=== PATIENT | male | born 1960 | race Caucasian/White ===

== ENCOUNTER 2016-12-31 10:32 | Emergency (ER) | payer OTHER ==
[~2016-12-31] VITALS: Ht 177.8 cm; Wt 126.4 kg
[~2016-12-31 10:32] MED LIST: /AUGM875TA PO; ACET-645 PO; ACET300T PO; AMLO5TAB2 PO; ASPI81CH3 PO; ASPI81TA4 PO; BIMA01SOL OU; CHLO25TA3 PO; KEPP500T13 PO; KEPPRA PO; MINO2.5T PO; NORT10CA2 PO; OSCA200T PO; PARO40TA PO; PERC5TAB8 PO; SERT100T OR; VENL150T PO; VENL75TA3 PO; VIMP150T PO; VIMPAT PO; ZOLO100T PO
[2016-12-31 10:33] VITALS: BP 170/77
[2016-12-31] MEDS ORDERED: ATOR1TAB21 PO (10:47)
[2016-12-31] MEDS ORDERED: PERC5TAB12 PO (18:15)
[2016-12-31] MEDS ORDERED: CIPR-249 PO (18:15)
== END 2016-12-31 11:22 | disposition left against medical advice (07) ==
LOC: M ED 10:32
DX: N50.89 Other specified disorders of the male genital organs (principal); Z53.29 Procedure and treatment not carried out because of patient's decision for other reasons

== ENCOUNTER 2016-12-31 15:41 | Emergency (ER) | payer OTHER ==
[~2016-12-31] VITALS: Ht 177.8 cm; Wt 126.4 kg
[~2016-12-31 15:41] MED LIST changes: +ATOR1TAB21 PO
[2016-12-31] MEDS ORDERED: PIPERACILLIN/TAZOBACTAM SOD 3.375 GM in D5W MINI-BAG PLUS 50 ML IV ONE (16:45)
[2016-12-31] MEDS ORDERED: ONDANSETRON 4MG/2ML VIAL (J2405) IV ONE (16:45)
[2016-12-31] MEDS ORDERED: NS 1,000 ML IV SCH (16:45)
[2016-12-31] MEDS ORDERED: MORPHINE 4 MG/ML 1ML SYRINGE IV ONE (16:45)
[2016-12-31 17:04] LABS: MEAN CORPUSCULAR HEMOGLOBIN 33.5 pg (27.0-33.0); MEAN CORPUSCULAR HGB CONC 35.1 g/dl (32.0-36.5); MEAN CORPUSCULAR VOLUME 95.7 fl (80.0-96.0)
[2016-12-31 17:22] LABS: ANION GAP 9 MEQ/L (8-16); BLOOD UREA NITROGEN 13 MG/DL (7-18); CALCIUM LEVEL 9.3 MG/DL (8.5-10.1); CARBON DIOXIDE LEVEL 24 MEQ/L (21-32); CHLORIDE LEVEL 104 MEQ/L (98-107); CREATININE FOR GFR 0.92 MG/DL (0.70-1.30); GLOMERULAR FILTRATION RATE > 60.0 (>56); GLUCOSE, FASTING 138 MG/DL (70-105); POTASSIUM SERUM 3.6 MEQ/L (3.5-5.1); SODIUM LEVEL 137 MEQ/L (136-145)
--- NOTE | 2016-12-31 17:26 | REP ---
Clinical: Scrotal pain with history of testicular abscess. Technique: Real time bowser scale and color Doppler evaluation of the scrotum and testicles using linear high frequency transducer. Findings: The right epididymis is significantly heterogeneous, enlarged and hypervascular along with hypervascular right testicle and small complex hydrocele are consistent with right-sided epididymitis/orchitis. No discrete drainable collection or testicular abscess is identified. In comparison, the left testicle and epididymis are normal in appearance and vascularity without associated infectious/inflammatory process. There is no evidence for torsion. Right testicle measures 5.0 x 2.5 x 4.1 cm. Left testicle measures 5.3 x 2.1 x 3.0 cm. Impression: Acute right epididymitis/orchitis including small complex hydrocele. No drainable collection or intratesticular abscess identified. Signed by Connor Smith MD 12/31/2016 05:17 P
[2016-12-31] MEDS ORDERED: CIPR-249 PO (18:15)
[2016-12-31] MEDS ORDERED: CIPROFLOXACIN 500 MG TAB PO ONE (18:15)
[2016-12-31] MEDS ORDERED: PERC5TAB12 PO (18:15)
[2016-12-31 18:21] VITALS: BP 143/73
== END 2016-12-31 18:26 | disposition home or self-care (01) ==
LOC: M ED 15:41
DX: N45.2 Orchitis (principal); N43.3 Hydrocele, unspecified; N45.1 Epididymitis

== ENCOUNTER 2017-01-03 22:09 | Inpatient (IN) | payer OTHER ==
[~2017-01-03] VITALS: Ht 177.8 cm; Wt 126.1 kg
[~2017-01-03 22:09] MED LIST changes: +CIPR-249 PO; +PERC5TAB12 PO
[2017-01-03 23:08] LABS: BASO % 0.2 % (0.0-1.0); EOS # 0.3 K/mm3 (0.0-0.50); EOS % 1.8 % (0.0-3.0); LARGE UNSTAINED CELL # 0.2 K/mm3 (0.0-0.4); LARGE UNSTAINED CELL % 1.1 % (0.0-4.0); LYMPH # 1.5 K/mm3 (1.5-4.5); LYMPH % 9.8 % (24.0-44.0); MEAN CORPUSCULAR HEMOGLOBIN 33.5 pg (27.0-33.0); MEAN CORPUSCULAR HGB CONC 33.9 g/dl (32.0-36.5); MEAN CORPUSCULAR VOLUME 98.6 fl (80.0-96.0); MONO # 0.6 K/mm3 (0.0-0.8); MONO % 4.2 % (0.0-5.0); NEUTROPHILS # 11.9 K/mm3 (1.8-7.7); PLATELET COUNT, AUTOMATED 233 k/mm3 (150-450); RED CELL DISTRIBUTION WIDTH 12.2 % (11.5-14.5); WHITE BLOOD COUNT 14.3 K/mm3 (4.0-10.0)
[2017-01-03] MEDS ORDERED: ONDANSETRON 4MG/2ML VIAL (J2405) IV ONE (23:15)
[2017-01-03] MEDS ORDERED: PIPERACILLIN/TAZOBACTAM SOD 3.375 GM in D5W MINI-BAG PLUS 50 ML IV ONE (23:15)
[2017-01-03 23:29] LABS: ALBUMIN 3.1 GM/DL (3.2-5.2); ALBUMIN/GLOBULIN RATIO 0.65 (1.00-1.93); ALKALINE PHOSPHATASE 55 U/L (45-117); ALT/SGPT 22 U/L (12-78); ANION GAP 6 MEQ/L (8-16); AST/SGOT 9 U/L (15-37); BILIRUBIN,DIRECT 0.2 MG/DL (0.0-0.2); BILIRUBIN,TOTAL 0.6 MG/DL (0.2-1.0); BLOOD UREA NITROGEN 13 MG/DL (7-18); CALCIUM LEVEL 8.9 MG/DL (8.5-10.1); CARBON DIOXIDE LEVEL 30 MEQ/L (21-32); CHLORIDE LEVEL 101 MEQ/L (98-107); ERYTHROCYTE SEDIMENTATION RATE 85 mm/hr (0-20); GLOMERULAR FILTRATION RATE > 60.0 (>56); GLUCOSE, FASTING 146 MG/DL (70-105); POTASSIUM SERUM 3.2 MEQ/L (3.5-5.1); SODIUM LEVEL 137 MEQ/L (136-145); TOTAL PROTEIN 7.9 GM/DL (6.4-8.2)
[2017-01-03] MEDS: MORPHINE 4 MG/ML 1ML SYRINGE IV PRN (23:30)
--- NOTE | 2017-01-04 | REPUSA ---
Clinical history: Pain. comparison: 12/31/2016. Findings: Real-time ultrasound imaging of the testicles and scrotum was performed. The right testicle measures 5.5 x 3.1 x 3.6 cm. The left test5.5 x 3.1 x 3.6 x .6 x 2.8 x 3.1 cm. The testicles demonst rate normal echo texture and echogenicity. Normal color Doppler flow and arterial waveforms are seen bilaterally. There is hyper vascularity in the right epididymis and right testicle. A complex right-s ided hydrocele is noted. A simple left-sided hydrocele stable. Diffuse increased thickening of the sc rotal wall is noted. Impression: 1. No significant change in right-sided epididymitis/archives. 2. The complex right-sided hydrocele is grossly stable. 3. Stable small left-sided varicocele. 4. Diffuse thickening and hyperemia of the scrotal wall could represent cellulitis in the appropriat e clinical setting. Follow-up is suggested as clinically indicated.
[2017-01-04] MEDS ORDERED: EFFE150C PO (01:05)
[2017-01-04] MEDS ORDERED: CIPR-249 PO (01:05)
[2017-01-04] MEDS ORDERED: VIMP200T PO (01:05)
[2017-01-04] MEDS ORDERED: OXYC1TAB23 PO (01:05)
[2017-01-04] MEDS ORDERED: VITA100066 PO (01:05)
[2017-01-04 01:26] LABS: MICROSCOPIC INDICATED? MAN YES (NO)
[2017-01-04 01:34] LABS: WBC, URINE TNTC /hpf (0-3)
[2017-01-04 01:36] LABS: BACTERIA, URINE SMALL AMOUNT; HYALINE CAST, URINE 0-1 /lpf (0-1); SQUAMOUS EPITHELIAL CELL URINE SMALL AMOUNT /hpf (SMALL AMT)
[2017-01-04 01:37] LABS: MICROSCOPIC EXAM PERFORMED
[2017-01-04] MEDS ORDERED: ONDANSETRON 4MG/2ML VIAL (J2405) IV PRN (03:45)
[2017-01-04] MEDS: MORPHINE 4 MG/ML 1ML SYRINGE IV PRN ×2 (03:54→20:43)
--- NOTE | 2017-01-04 04:31 | HPEPDOC ---
General Date of Admission Primary Care Physician: ZARA HARRISON OGME-1 Chief Complaint The patient is a 56-year-old male admitted with a reason for visit of Testicular Pain. Source: Patient Exam Limitations: No limitations Timing/Duration: Day(s) (4) Severity: Moderate Associated Symptoms: Malaise, Nausea History of Present Illness Mr Martino is a 56 y/o male with past medical history of depression, seizure (last Grandmal 3 yrs ago), htn, dlp who presents with CC of swelling and pain in his testicular region. The pt states that the pain began 4-5 days ago, he first noted swelling in his right testicle, he states that the next day he went to our ED and was given antibiotics. He states that he'd been taking the antibiotics but the swelling had continued to increase and he began to have pain in his testicle along with some middle lower pelvis achy pain and nausea, thus he returned to our ED. He denies fevers or muscle aches, denies pain w/ urination or defecation but does admit to seeing some blood in his urine, no other penile d/c admitted to. He states his appetite has been good and he has not experienced any CP, palpitations or SOB. He is in a monogamous relationship w/his for the past 30+ years and is sexually active w/her, he has never been treated for an STI in the past. Home Medications Scheduled (Aspirin Childrens) 81 Mg Chw, 81 MG PO DAILY, (Reported) Amlodipine Besylate (Amlodipine Besylate) 5 Mg Tab, 5 MG PO DAILY, (Reported) Atorvastatin Calcium (Atorvastatin Calcium) 20 Mg Tab, 1 TAB PO DAILY, (Reported ) Cholecalciferol (Vitamin D) 1,000 Unit Tab, 1,000 UNIT PO DAILY, (Reported) Ciprofloxacin HCl (Cipro) 500 Mg Tab, 500 MG PO BID, (Reported) Lacosamide (Vimpat) 200 Mg Tab, 200 MG PO BID, (Reported) Levetiracetam (Keppra Xr) 500 Mg Tab, 1,000 MG PO QAM, (Reported) Levetiracetam (Keppra Xr) 500 Mg Tab, 1,500 MG PO QHS, (Reported) Minoxidil (Minoxidil) 2.5 Mg Tab, 2.5 MG PO DAILY, (Reported) Venlafaxine Hydrochloride (Effexor Xr) 150 Mg Cap, 150 MG PO BID, (Reported) Scheduled PRN Oxycodone/Acetaminophen (Oxycodone/Acetaminophen 5-325 mg) 1 Tab Tab, 1 TAB PO Q6H PRN for PAIN, (Reported) Allergies Coded Allergies: No Known Drug Allergy (Verified Allergy, Unknown, 10/04/12) Past Medical History Medical History depression seizure-followed by neurologist in [facility] htn dlp Family History Significant Family History: No pertinent family hx Social History * Smoker: Denies Alcohol: Denies Drugs: denies Review of Symptoms Constitutional: Reports: Malaise, Denies: Chills, Fever, Night Sweats, Weakness Eyes: Denies: Vision change, Conjunctivae inflammation Skin: Reports: Rash (along groin b/l ), Denies: Lesions Pulmonary: Denies: Dyspnea, Cough Cardiovascular: Denies: Chest Pain, Palpitations, Edema Gastrointestinal: Reports: Nausea, Abdominal Pain (low pelvic), Denies: Vomiting Genitourinary: Reports: Hematuria, Denies: Dysuria, Frequency, Incontinence Hematologic: Denies: Bruising Musculoskeletal: Denies: Neck Pain Neurological: Denies: Weakness, Numbness Psych: Reports: Mood Normal Physical Examination General Exam: Positive: Alert, Cooperative, Mild Distress Eye Exam: Positive: Conjunctiva & lids normal, EOMI, Negative: Sclera icteric ENT Exam: Positive: Atraumatic Neck Exam: Positive: Supple Chest Exam: Positive: Clear to auscultation, Normal air movement, Negative: Rales, Rhonchi, Wheezing Heart Exam: Positive: Rate Normal, Normal S1, Normal S2, Negative: Tachycardic, Bradycardic, Gallops, Murmurs, Rubs Telemetry: Positive: No significant arrhythmia Abdomen Exam: Positive: Normal bowel sounds, Soft, Tenderness (middle low pelvic), Negative: Hepatospenomegaly Extremity Exam: Positive: Normal pulses, Swelling (entire testicular region shows erythema, firm, painful to palpitation, no penile d/c appreciated, gross swelling of foreskin around penis. ), Negative: Clubbing, Cyanosis, Edema Skin Exam: Positive: Rash (b/l groin intertriginous erythema, scaling) Psych Exam: Positive: Mental status NL Vital Signs Vital Signs Date Time Temp Pulse Resp B/P (MAP) Pulse Ox O2 Delivery O2 Flow Rate FiO2 01/04/17 03:54 18 01/04/17 01:30 01/04/17 01:29 99.9 92 93 Room Air Laboratory Data Labs 24H Laboratory Tests 2 01/03/17 22:46: Estimated Mean Plasma Glucose 111H, Hemoglobin A1c 5.5 01/03/17 22:52: White Blood Count 14.3H, Red Blood Count 3.92L, Hemoglobin 13.1L, Hematocrit 38.6L, Mean Corpuscular Volume 98.6H, Mean Corpuscular Hemoglobin 33.5H, Mean Corpuscular Hemoglobin Concent 33.9, Red Cell Distribution Width 12.2, Platelet Count 233, Neutrophils (%) (Auto) 83.0H, Lymphocytes (%) (Auto) 9.8L, Monocytes (%) (Auto) 4.2, Eosinophils (%) (Auto) 1.8, Basophils (%) (Auto) 0.2, Neutrophils # (Auto) 11.9H, Lymphocytes # (Auto) 1.5, Monocytes # (Auto) 0.6, Eosinophils # (Auto) 0.3, Basophils # (Auto) 0.0, Large Unclassified Cells % 1.1 , Large Unclassified Cells # 0.2, Erythrocyte Sedimentation Rate 85H, Bedside Urine Color (LAB) YELLOW, Bedside Urine Appearance (LAB) HAZYH, Bedside Urine pH (LAB) 5.0, Bedside Urine Specific [place] (LAB 1.020, Bedside Urine Protein ( LAB) TRACEH, Bedside Urine Glucose (UA) NEGATIVE, Bedside Urine Ketones (LAB) NEGATIVE, Bedside Urine Blood POSITIVEH, Bedside Urine Nitrite (LAB) NEGATIVE, Bedside Urine Bilirubin (LAB) NEGATIVE, Bedside Urine Urobilinogen (LAB) NORMAL , Bedside Urine Leukocyte Esterase (L POSITIVEH, Urine WBC TNTCH, Urine RBC 7- 10H, Urine Squamous Epithelial Cells SMALL AMOUNT, Urine Bacteria SMALL AMOUNTH , Urine Hyaline Casts 0-1, Urine Mucus LARGE AMOUNTH, Urine Amorphous Sediment , Urine Sediment Examination PERFORMED, Anion Gap 6L, Glomerular Filtration Rate > 60.0, Lactic Acid Level 1.2, Calcium Level 8.9, Aspartate Amino Transf ( AST/SGOT) 9L, Alanine Aminotransferase (ALT/SGPT) 22, Alkaline Phosphatase 55, Total Bilirubin 0.6, Direct Bilirubin 0.2, C-Reactive Protein, Quantitative 23.80H, Total Protein 7.9, Albumin 3.1L, Albumin/Globulin Ratio 0.65L CBC/BMP Laboratory Tests 01/03/17 22:52 Red Blood Count 3.92 L, Mean Corpuscular Volume 98.6 H, Mean Corpuscular Hemoglobin 33.5 H, Mean Corpuscular Hemoglobin Concent 33.9, Red Cell Distribution Width 12.2, Neutrophils (%) (Auto) 83.0 H, Lymphocytes (%) (Auto) 9.8 L, Monocytes (%) (Auto) 4.2, Eosinophils (%) (Auto) 1.8, Basophils (%) (Auto ) 0.2, Neutrophils # (Auto) 11.9 H, Lymphocytes # (Auto) 1.5, Monocytes # (Auto ) 0.6, Eosinophils # (Auto) 0.3, Basophils # (Auto) 0.0 Microbiology Microbiology 01/03/17 Blood Culture, Received Pending 01/03/17 Blood Culture, Received Pending Problems (1) Orchitis and epididymitis Status: Acute Response to Treatment: Stable Problem Specific Plan: Consult Specialist Problem Text: U/S shows orchitis/epididymitis and scrotal cellulitis Dr. Monge of Urology consulted, agreed to see pt in AM- appreciate his recommendations Ceftriaxone scrotal elevation w/scrotal sling pain control morphine (2) Cellulitis of scrotum Status: Acute Response to Treatment: Stable Problem Text: Nystatin powder Ceftriaxone scrotal sling for elevation (3) HTN (hypertension) Status: Chronic Response to Treatment: Stable Problem Text: continue home medications (4) Hyperlipidemia Status: Chronic Response to Treatment: Stable Problem Text: continue home medications (5) History of seizure Status: Chronic Response to Treatment: Stable Problem Text: continue vipmat and keppra (6) DVT prophylaxis Status: Acute Response to Treatment: Stable Problem Text: scd teds Plan / VTE VTE Prophylaxis Ordered?: Yes GME ATTESTATION GME ATTESTATION My preceptor for this patient encounter was physically present in the building during the encounter and was fully available. As needed, all aspects of the patient interview, examination, medical decision making process, and medical care plan development were reviewed and approved by the preceptor. Preceptor is aware and concurs with the plan as stated in the body of this note and will attest to such by his/her cosignature. ATTENDING NOTE Pt seen and examined by me. Findings and plan reviewed with resident. Resident note reviewed and agree with documented findings and plan. 1 Orchitis/epididymitis failing outpt abx Continue iv ceftriaxone-would avoid quinolones given hx of seizure d/o and risk of lowering seizure threshold F/u wbc trend, fever curve and cx's Continue pain control Scrotal elevation Urology consult 2 seizure d/o Continue keppra Continue vimpat 3 HTN Continue norvasc Continue minoxidil 4 Hyperlipidemia Continue lipitor GREGORIA FREIRE DO Jan 04, 2017 04:31 Tang Holbrook MD Jan 05, 2017 07:39
[2017-01-04 05:00] VITALS: BP 128/67
[2017-01-04 06:00] VITALS: BP 121/63
[2017-01-04] MEDS ORDERED: cefTRIAXone SOD 2 GM in D5W MINI-BAG PLUS 50 ML IV SCH (06:00)
[2017-01-04] MEDS: NYSTATIN 100,000 UNITS/GM TOPICAL PWD 15 GM TOP SCH ×2 (09:00→20:37)
[2017-01-04] MEDS: ASPIRIN 81 MG CHEW TABLET PO SCH (09:14)
[2017-01-04] MEDS: levETIRAcetam **XR** 500 MG TABLET PO SCH (09:14)
[2017-01-04] MEDS: MINOXIDIL 2.5 MG TAB PO SCH (09:14)
[2017-01-04] MEDS: VENLAFAXINE **XR** 75MG CAPSULE PO SCH ×2 (09:14→20:36)
[2017-01-04] MEDS: LACOSAMIDE 50 MG TAB (VIMPAT) PO SCH ×2 (09:15→20:37)
[2017-01-04] MEDS: amLODIPine 5 MG TAB PO SCH (09:15)
[2017-01-04] MEDS: ATORVASTATIN 20 MG TAB PO SCH (09:15)
[2017-01-04] MEDS ORDERED: ISOVUE-370 76% 100ML VIAL (Q9967) As Ordered ONE (12:56)
--- NOTE | 2017-01-04 13:43 | REP ---
Clinical: Hematuria. Technique: Precontrast, contrast enhanced, and delayed images of the abdomen and pelvis using 100 ml Isovue 370 intravenous contrast material with multiplanar re-formations and MPR CT urogram. Comparison: 08/15/2013. Findings: Evaluation in all phases of enhancement demonstrates relatively normal appearance to the kidneys and collecting system. Incidental note is made of a 6 mm lateral right renal cyst. No hydroureteronephrosis, perinephric stranding, intrarenal or obstructing ureteral calculi. No renal mass lesion. Collecting system appears normal. Liver, spleen, pancreas, gallbladder, bilateral adrenal glands are normal. The enteric system is without obstruction or acute inflammatory process. Normal terminal ileum and appendix identified in the right lower quadrant. Pelvis demonstrates normal bladder and age appropriate prostate/seminal vesicles. Left inguinal hernia. Inflammatory stranding, fluid and hyperemia extends into the right lori scrotum and is consistent with acute epididymitis/orchitis complex. Reactive bilateral inguinal adenopathy noted. Impression: Acute epididymitis/orchitis (right greater than left). Normal appearance to the urinary tract system. No acute abdominopelvic pathology otherwise appreciated. Signed by Connor Smith MD 01/04/2017 01:34 P
[2017-01-04 14:00] VITALS: BP 117/65
[2017-01-04] MEDS: LACTOBACILLUS ACIDOPHILUS CAP (BACID) PO SCH (17:47)
--- NOTE | 2017-01-04 17:56 | SMCUROLCON ---
Urology Consultation General Date of Consultation 01/04/17 Reason For Consultation This patient is seen for Orchitis And Epididymitis. History of Present Illness The patient is a 56-year-old male with no past urologic history. Starting about 5 days ago he developed right sided scrotal pain. He presented to the ED where U/S and exam was c/w right epididymo-orchitis with a complex hydrocele. He was sent home on cipro. However, the pain did not improve and he reports that the scrotal skin had increasing redness. He returned to ED on 01/03/17 where exam demonstrated progressing scrotal cellulits. Repeat scrotal U/S was relatively similar from prior. The patient denies any drainage of pus or fluid from scrotum or groin. The patient was admitted to Medicine for IV antibiotics and further evaluation. Upon questioning he does report worsening urinary hesitancy and nocturia. He has never seen a urologist or been on any prostate medications. Past Medical History Medical History depression, seizures, htn, dlp Surgical Hstory None Family History Significant Family History: No pertinent family hx Social History * Smoker: non-smoker Alcohol: Denies Drugs: denies Medications Current Medications Current Medications Amlodipine Besylate (Norvasc) 5 mg DAILY PO Last administered on 01/04/17 09:15 ; Start 01/04/17 at 09:00; Stop 02/03/17 at 08:59 Aspirin (Aspirin Chewable) 81 mg DAILY PO Last administered on 01/04/17 09:14; Start 01/04/17 at 09:00; Stop 02/03/17 at 08:59 Atorvastatin Calcium (Lipitor) 20 mg DAILY PO Last administered on 01/04/17 09: 15; Start 01/04/17 at 09:00; Stop 02/03/17 at 08:59 Cefdinir (Omnicef) 300 mg BID PO ; Start 01/04/17 at 21:00; Stop 01/11/17 at 20: 59 Ceftriaxone Sodium 2 gm/ Dextrose 50 ml @ 100 mls/hr Q24H IV Last administered on 01/04/17 05:58; Start 01/04/17 at 06:00; Stop 01/04/17 at 14:54; Status DC Home Med (Med Rec Complete!) ASDIRECTED XX ; Start 01/04/17 at 01:15; Stop at 01:16; Status DC Lacosamide (Vimpat) 200 mg BID PO Last administered on 01/04/17 09:15; Start at 09:00; Stop 01/11/17 at 08:59 Lactobacillus Acidophilus (Bacid) 2 ea WM PO ; Start 01/04/17 at 18:00; Stop 02/03 at 17:59 Levetiracetam (Keppra Xr) 1,000 mg QAM PO Last administered on 01/04/17 09: 14; Start 01/04/17 at 09:00; Stop 02/03/17 at 08:59 Levetiracetam (Keppra Xr) 1,500 mg QHS PO ; Start 01/04/17 at 21:00; Stop 02/03/17 at 20:59 Minoxidil (Loniten) 2.5 mg DAILY PO Last administered on 01/04/17 09:14; Start 01/04/17 at 09:00; Stop 02/03/17 at 08:59 Morphine Sulfate (Morphine Sulfate Inj) 2 mg Q3HP PRN IV PAIN; Start 01/04/17 at 03:45; Stop 01/11/17 at 03:44 Morphine Sulfate (Morphine Sulfate Inj) 4 mg Q30M PRN IV SEVERE PAIN (PS 8-10) Last administered on 01/04/17 03:54; Start 01/03/17 at 23:15; Stop 01/04/17 at 03: 54; Status DC Nystatin (Mycostatin Powder, Nystop) groin b/l -intertrigo BID TOP Last administered on 01/04/17 09:00; Start 01/04/17 at 09:00; Stop 02/03/17 at 08:59 Ondansetron HCl (ZOFRAN INJection) 4 mg Q6HP PRN IV NAUSEA OR VOMITING; Start 01/04/17 at 03:45; Stop 02/03/17 at 03:44 Trimethoprim/ Sulfamethoxazole (Bactrim Ds, Septra Ds 160mg/ 800mg) 2 tab BID PO ; Start 01/04/17 at 21:00; Stop 01/11/17 at 20:59 Venlafaxine HCl (Effexor Xr) 150 mg BID PO Last administered on 01/04/17t 09 :14; Start 01/04/17 at 09:00; Stop 02/03/17 at 08:59 Allergies Allergies: Coded Allergies: No Known Drug Allergy (Verified Allergy, Unknown, 10/04/12) Review of Systems General: Reports: Normal Appetite, Denies: Fatigue, Malaise Constitutional: Denies: Fever, Chills, Sweats, Weakness, Malaise Eyes: Denies: Pain, Vision change ENT: Denies: Head Aches, Sore Throat, Epistaxis Skin: Reports: Other Pulmonary: Denies: Dyspnea, Cough Cardiovascular: Denies Chest Pain, Denies Palpitations Gastrointestinal: Denies: Nausea, Vomiting, Abdominal Pain Genitourinary: Reports: Other Symptoms, Denies: Dysuria Hematologic: Denies: Bruising, Bleeding Excessively Endocrine: Denies: Polydipsia, Polyphagia, Polyuria Musculoskeletal: Denies: Neck Pain, Back Pain Neurological: Denies: Weakness, Numbness, Incoordination, Change in Speech Psych: Reports: Mood Normal, Denies: Anxiety, Depression Physical Examination General Exam: Alert, No Acute Distress EYE EXAM: PERRLA, Conjunctiva & lids normal, No: Sclera icteric ENT EXAM: Atraumatic, Mucous membr. moist/pink, Pharynx Normal Neck Exam: Supple, No: JVD, thyromegaly Chest Exam: Clear to auscultation, Normal air movement Heart Exam: Rate Normal, Regular Rhythm, Normal S1, Normal S2, No: Murmurs, Rubs Abdomen Exam: Normal Bowel Sounds, Soft, No: Tenderness, Hepatospenomegaly Male Exam Circumcised phallus with penile skin edema resulting in some burying of glans, very indurated, tender, edmatous and erythematous scrotal wall R>L, no drainage of pus or any other fluid, Female Exam: Nl Ext Genitalia, No: Lesions, Discharge, Odor, Tenderness Extremity Exam: Normal Pulses, No: Clubbing, Cyanosis, Edema Skin Exam: Nl turgor and temperature, Other skin issue, No: Rash, Breakdown Neuro Exam: Normal Gait, Normal Speech, Cranial Nerves 3-12 NL, Reflexes 2+ Psych Exam: Mental status NL, Mood NL, Oriented x 3 Vital Signs/I&O Vital Signs Date Time Temp Pulse Resp B/P (MAP) Pulse Ox O2 Delivery O2 Flow Rate FiO2 01/04/17 14:00 98.8 78 16 117/65 (82) 96 Room Air I&O- Last 24 Hours up to 6 AM 01/04/17 06:00 Intake Total 100 ml Balance 100 ml Laboratory Data 24H Labs Laboratory Tests 2 01/03/17 22:46: Estimated Mean Plasma Glucose 111H, Hemoglobin A1c 5.5 01/03/17 22:52: White Blood Count 14.3H, Red Blood Count 3.92L, Hemoglobin 13.1L, Hematocrit 38.6L, Mean Corpuscular Volume 98.6H, Mean Corpuscular Hemoglobin 33.5H, Mean Corpuscular Hemoglobin Concent 33.9, Red Cell Distribution Width 12.2, Platelet Count 233, Neutrophils (%) (Auto) 83.0H, Lymphocytes (%) (Auto) 9.8L, Monocytes (%) (Auto) 4.2, Eosinophils (%) (Auto) 1.8, Basophils (%) (Auto) 0.2, Neutrophils # (Auto) 11.9H, Lymphocytes # (Auto) 1.5, Monocytes # (Auto) 0.6, Eosinophils # (Auto) 0.3, Basophils # (Auto) 0.0, Large Unclassified Cells % 1.1 , Large Unclassified Cells # 0.2, Erythrocyte Sedimentation Rate 85H, Bedside Urine Color (LAB) YELLOW, Bedside Urine Appearance (LAB) HAZYH, Bedside Urine pH (LAB) 5.0, Bedside Urine Specific [place] (LAB 1.020, Bedside Urine Protein ( LAB) TRACEH, Bedside Urine Glucose (UA) NEGATIVE, Bedside Urine Ketones (LAB) NEGATIVE, Bedside Urine Blood POSITIVEH, Bedside Urine Nitrite (LAB) NEGATIVE, Bedside Urine Bilirubin (LAB) NEGATIVE, Bedside Urine Urobilinogen (LAB) NORMAL , Bedside Urine Leukocyte Esterase (L POSITIVEH, Urine WBC TNTCH, Urine RBC 7- 10H, Urine Squamous Epithelial Cells SMALL AMOUNT, Urine Bacteria SMALL AMOUNTH , Urine Hyaline Casts 0-1, Urine Mucus LARGE AMOUNTH, Urine Amorphous Sediment , Urine Sediment Examination PERFORMED, Anion Gap 6L, Glomerular Filtration Rate > 60.0, Lactic Acid Level 1.2, Calcium Level 8.9, Aspartate Amino Transf ( AST/SGOT) 9L, Alanine Aminotransferase (ALT/SGPT) 22, Alkaline Phosphatase 55, Total Bilirubin 0.6, Direct Bilirubin 0.2, C-Reactive Protein, Quantitative 23.80H, Total Protein 7.9, Albumin 3.1L, Albumin/Globulin Ratio 0.65L CBC/BMP Laboratory Tests 01/03/17 22:52 Red Blood Count 3.92 L, Mean Corpuscular Volume 98.6 H, Mean Corpuscular Hemoglobin 33.5 H, Mean Corpuscular Hemoglobin Concent 33.9, Red Cell Distribution Width 12.2, Neutrophils (%) (Auto) 83.0 H, Lymphocytes (%) (Auto) 9.8 L, Monocytes (%) (Auto) 4.2, Eosinophils (%) (Auto) 1.8, Basophils (%) (Auto ) 0.2, Neutrophils # (Auto) 11.9 H, Lymphocytes # (Auto) 1.5, Monocytes # (Auto ) 0.6, Eosinophils # (Auto) 0.3, Basophils # (Auto) 0.0 Microbiology Microbiology 01/03/17 Blood Culture, Received Pending 01/03/17 Blood Culture, Received Pending Assessment Fluoroquinolone-resistant epididymo-orchitis and scrotal cellulitis, LUTS, microhematuria, possible UTI Plan Fluoroquinolone-resistant epididymo-orchitis and scrotal cellulitis, possible UTI: -Continue ceftriaxone while patient is inpatient. -Trend WBC and CRP. -f/u results of urine and blood cultures and sensitivities. -Once down-trending WBC and CRP and/or improvement of scrotal tenderness and skin changes, consider discharge on bactrim for total treatment time ( ceftriaxone and bactrim) of 10 days. -If continues to have significant or symptomatic hydrocele after this infection has passed may benefit from elective hydrocele surgery. Hematuria: CT urogram does not demonstrate any concerning findings but patient should have an outpatient, elective office cystoscopy to complete hematuria evaluation. Urinary hesitancy and nocturia: patient may benefit from treatment for BPH/LUTS : this can be discussed further at outpatient urology f/u. CT does also report a hernia so patient should be referred to a general surgeon for outpatient evaluation. Time Spent on Consult: Time Spent / Consult (Minutes): 45 TRISTIN JARAMILLO MD Jan 04, 2017 17:56
[2017-01-04] MEDS: BACTRIM 160MG/800MG DS TAB PO SCH (20:36)
[2017-01-04] MEDS: CEFDINIR 300 MG CAP (OMNICEF) PO SCH (20:36)
--- NOTE | 2017-01-04 20:50 | IPN ---
DATE: 01/04/2017 SUBJECTIVE: Patient seen and examined in the room today. Patient stated he still has significant discomfort at the scrotum. The swelling the redness has not improved. Patient came to the emergency room previously. Patient was discharged home with ciprofloxacin. Patient stated ciprofloxacin did not help with his swelling. No overnight events were reported. OBJECTIVE: VITAL SIGNS: Temperature is 99.1, pulse is 76, respirations 15, blood pressure 121/63, pulse oximetry 98% in room air. GENERAL: No sign of acute distress, alert and oriented times three. HEENT: Normocephalic, atraumatic. Extraocular motor grossly intact. CARDIOVASCULAR: Positive S1, S2, regular rate. LUNGS: Clear to auscultation bilaterally. ABDOMEN: Soft, nontender, nondistended. Bowel sounds present. No rebound. No guarding. Morbidly obese. GENITOURINARY: There is significant swelling and erythema of the scrotum. There is discomfort to palpation. No active penile discharge noted. EXTREMITIES: No edema. No sign of cyanosis. LABORATORY DATA: WBC 14.3 hemoglobin 13.1, hematocrit is 38.6, platelet count is 333. Sodium is 137, potassium 3.2, chloride is 101, carbon dioxide 30, BUN 13, creatinine 1, GFR greater than 60, fasting glucose is 146. Lactic acid 1.2. Calcium is 8.9. Total bilirubin 0.6, direct bilirubin 0.2, AST 9, ALT is 22, alkaline phosphatase 55. C-reactive protein is 23.8, total protein is 7.9, albumin 3.1. ASSESSMENT AND PLAN: 1. Orchitis and epididymitis. Urologist, Dr. Monge, has been consulted. Patient has failed ciprofloxacin in outpatient setting. Currently patient is switched to Rocephin. I discussed the case with urologist. He recommends patient antibiotic be switched to Omnicef with Bactrim. There could be a component of cellulitis complicating patient's current presentation. 2. Hypertension. Currently patient's blood pressure is in the satisfactory range. Patient is on Norvasc 5 mg by mouth daily. 3. History of seizure. Patient on Vimpat and Keppra. 4. Hyperlipidemia, on statin. 5. Deep vein thrombosis (DVT) prophylaxis. Patient is on thromboembolic deterrents (TEDs) and sequential compression devices. [facility]
[2017-01-04] MEDS ORDERED: levETIRAcetam **XR** 500 MG TABLET PO SCH (21:00)
[2017-01-04 22:00] VITALS: BP 128/72
[2017-01-05 06:00] VITALS: BP 142/81
[2017-01-05 07:07] LABS: BASO # 0.1 K/mm3 (0.0-0.2); BASO % 0.5 % (0.0-1.0); EOS # 0.2 K/mm3 (0.0-0.50); EOS % 1.3 % (0.0-3.0); LARGE UNSTAINED CELL # 0.2 K/mm3 (0.0-0.4); LARGE UNSTAINED CELL % 1.7 % (0.0-4.0); LYMPH # 1.3 K/mm3 (1.5-4.5); LYMPH % 10.5 % (24.0-44.0); MEAN CORPUSCULAR HEMOGLOBIN 32.8 pg (27.0-33.0); MEAN CORPUSCULAR HGB CONC 33.8 g/dl (32.0-36.5); MEAN CORPUSCULAR VOLUME 96.9 fl (80.0-96.0); MONO # 0.6 K/mm3 (0.0-0.8); MONO % 5.1 % (0.0-5.0); NEUTROPHILS # 9.7 K/mm3 (1.8-7.7); PLATELET COUNT, AUTOMATED 257 k/mm3 (150-450); RED CELL DISTRIBUTION WIDTH 11.5 % (11.5-14.5)
[2017-01-05 07:30] LABS: ANION GAP 7 MEQ/L (8-16); BLOOD UREA NITROGEN 17 MG/DL (7-18); CALCIUM LEVEL 9.1 MG/DL (8.5-10.1); CARBON DIOXIDE LEVEL 29 MEQ/L (21-32); CHLORIDE LEVEL 104 MEQ/L (98-107); CREATININE FOR GFR 0.76 MG/DL (0.70-1.30); GLOMERULAR FILTRATION RATE > 60.0 (>56); GLUCOSE, FASTING 94 MG/DL (70-105); POTASSIUM SERUM 3.5 MEQ/L (3.5-5.1); SODIUM LEVEL 140 MEQ/L (136-145)
[2017-01-05] MEDS: CEFDINIR 300 MG CAP (OMNICEF) PO SCH (08:11)
[2017-01-05] MEDS: LACOSAMIDE 50 MG TAB (VIMPAT) PO SCH (08:11)
[2017-01-05] MEDS: levETIRAcetam **XR** 500 MG TABLET PO SCH (08:11)
[2017-01-05] MEDS: ASPIRIN 81 MG CHEW TABLET PO SCH (08:12)
[2017-01-05] MEDS: amLODIPine 5 MG TAB PO SCH (08:12)
[2017-01-05 08:13] VITALS: BP 142/81
[2017-01-05] MEDS: VENLAFAXINE **XR** 75MG CAPSULE PO SCH (08:13)
[2017-01-05] MEDS: BACTRIM 160MG/800MG DS TAB PO SCH (08:13)
[2017-01-05] MEDS: LACTOBACILLUS ACIDOPHILUS CAP (BACID) PO SCH (08:13)
[2017-01-05] MEDS: MINOXIDIL 2.5 MG TAB PO SCH (08:13)
[2017-01-05] MEDS: MORPHINE 4 MG/ML 1ML SYRINGE IV PRN (08:14)
[2017-01-05] MEDS: ATORVASTATIN 20 MG TAB PO SCH (08:18)
[2017-01-05] MEDS: NYSTATIN 100,000 UNITS/GM TOPICAL PWD 15 GM TOP SCH (09:00)
[2017-01-05] MEDS ORDERED: SULF1TAB23 PO (13:10)
[2017-01-05] MEDS ORDERED: OXYC1TAB23 PO (13:10)
[2017-01-05] MEDS ORDERED: PROBCAP4 PO (13:10)
[2017-01-05] MEDS ORDERED: CEFD300CAP PO (13:10)
--- NOTE | 2017-01-09 17:38 | DSES ---
DATE OF ADMISSION: 01/04/2017 DATE OF DISCHARGE: 01/05/2017 PRIMARY CARE PROVIDER: Tati CONSULTANTS: Urologist, Dr. Monge PROCEDURES: None. COMPLICATIONS: None. ADMISSION/DISCHARGE DIAGNOSES: 1. Orchitis/epididymitis. 2. Scrotal dermatitis. 3. Hypertension. 4. History of seizures. 5. Hyperlipidemia. HOSPITALIZATION COURSE: The patient is a 56-year-old male who presented to [facility] on 01/04/2017 with testicular pain with scrotal swelling and erythema. The patient was admitted to the hospital and urologist, Dr. Monge, was consulted. The patient was started on empiric antibiotic, Rocephin. The patient was recommended to continue with Rocephin while the patient was inpatient. The patient was also recommended to start on Bactrim for the cellulitis. On 01/05/2017, the patient was determined medically stable for discharge with recommendation to followup with the primary care provider and urology on the outpatient setting. The patient should continue Omnicef and Bactrim. OBJECTIVE: VITAL SIGNS: Temperature is 97.2, pulse is 80, respirations 20, blood pressure 142/81, pulse oximetry 93% on room air. LABORATORY DATA: WBC 12, hemoglobin 13.3, hematocrit 39.4, platelet count is 257. Sodium is 140, potassium 3.5, chloride 104, carbon dioxide 29, BUN 17, creatinine 0.76, GFR greater than 60, fasting glucose is 94, A1/c 5.5, lactic acid 1.2, calcium is 9.1, C-reactive protein is 15.6. GC and Chlamydia DNA test is negative. Microbiology: Blood culture is negative after 5 days times two sets. Imaging studies: Scrotal ultrasound on 01/03/2017 showed no significant changes other than right sided epididymitis/orchitis. Complex right sided hydrocele is grossly stable. Stable small left sided varicocele. Diffuse thickening and hyperemia of the scrotal wall, could represent cellulitis in the appropriate clinical setting. CT of the abdomen and pelvis with contrast showed acute epididymitis/orchitis, right greater than left. Normal appearance of the urinary tract system. DISCHARGE MEDICATIONS: - cefdinir 300 mg by mouth twice a day for 9 days - Bactrim two tablets by mouth twice a day for 9 days - Pepcid one tablet by mouth three times a day - Percocet one tablet by mouth three times a day as needed for 5 day supply - amlodipine 5 mg by mouth daily - aspirin 81 mg by mouth daily - atorvastatin 20 mg by mouth daily - vitamin D 1000 units by mouth daily - Vimpat 200 mg by mouth twice a day - Keppra 1000 mg by mouth in the morning - Keppra 1500 mg by mouth at night - minoxidil 2.5 mg by mouth daily - Effexor 150 mg by mouth twice a day Discontinue lines. Discharge home. Activity as tolerated. Diet as tolerated. The patient should followup with primary care provider in 7 to 10 days. The patient should followup with urology. The patient should finish antibiotic treatment for a total 10 days of treatment time. The patient was to followup with urology in the outpatient setting. Discharge condition: Stable. Discharge time: Greater than 30 minutes.
== END 2017-01-05 14:20 | disposition home or self-care (01) | DRG 501 ==
LOC: M ED 22:09 → M ED INP 01-04 04:11 → M MS5PR 01-04 04:40
PROVIDERS: ATTEND Internal Medicine
DX: N45.2 Orchitis (principal); I10 Essential (primary) hypertension; N49.2 Inflammatory disorders of scrotum; F32.9 Major depressive disorder, single episode, unspecified; G40.909 Epilepsy, unspecified, not intractable, without status epilepticus; E78.5 Hyperlipidemia, unspecified; Z79.82 Long term (current) use of aspirin; Z79.899 Other long term (current) drug therapy; N45.1 Epididymitis

== ENCOUNTER → 2017-01-14 | Outpatient (REF) | payer OTHER ==
[~2017-01-14] MED LIST changes: +CEFD300CAP PO; +EFFE150C PO; +OXYC1TAB23 PO; +PROBCAP4 PO; +SULF1TAB23 PO; +VIMP200T PO; +VITA100066 PO
== END ==
LOC: M SFHCPLAZ 15:34
PROVIDERS: ATTEND Student in an Organized Health Care Education/Training Program
DX: E55.9 Vitamin D deficiency, unspecified (principal)

== ENCOUNTER → 2017-02-22 | Outpatient (CLI) | payer OTHER ==
--- NOTE | 2017-02-22 13:21 | REP ---
SCROTAL ULTRASOUND: Real-time sonographic evaluation of the scrotum and contents performed. Comparison made with a prior study 01/03/2017. There is again scrotal wall thickening as seen on prior study. Testicles are normal in size and echotexture with no mass or torsion, right testicle measuring 5.2 x 2.7 x 3.8 cm and left testicle 5.6 x 2.8 x 2.8 cm. Blood flow is seen in each testicle with duplex Doppler evaluation, RI right testicle 0.59 and left testicle 0.52. Previously noted findings of right-sided epididymitis and orchitis appear to have resolved. Also the complex right hydrocele appears to have resolved. There is a small left hydrocele. Appendix testis is seen on the left. Small left varicocele is again noted. IMPRESSION: Previously noted findings of right-sided epididymitis and orchitis have resolved. The previously noted complex hydrocele on the right has also resolved. Signed by Chase Quinn MD 02/22/2017 04:41 P
== END ==
LOC: M SMT 10:36
PROVIDERS: ATTEND Nurse Practitioner Women's Health
DX: N45.3 Epididymo-orchitis (principal)

== ENCOUNTER → 2017-02-23 | Outpatient (REF) | payer OTHER ==
[2017-02-23 14:11] LABS: BASO % 0.5 % (0.0-1.0); EOS # 0.1 K/mm3 (0.0-0.50); EOS % 1.6 % (0.0-3.0); LARGE UNSTAINED CELL # 0.1 K/mm3 (0.0-0.4); LARGE UNSTAINED CELL % 1.2 % (0.0-4.0); LYMPH # 1.6 K/mm3 (1.5-4.5); LYMPH % 21.6 % (24.0-44.0); MEAN CORPUSCULAR HEMOGLOBIN 32.5 pg (27.0-33.0); MEAN CORPUSCULAR HGB CONC 33.1 g/dl (32.0-36.5); MEAN CORPUSCULAR VOLUME 98.3 fl (80.0-96.0); MONO # 0.4 K/mm3 (0.0-0.8); MONO % 5.8 % (0.0-5.0); NEUTROPHILS % 69.2 % (36.0-66.0); PLATELET COUNT, AUTOMATED 225 k/mm3 (150-450); WHITE BLOOD COUNT 7.2 K/mm3 (4.0-10.0)
[2017-02-23 14:24] LABS: FREE T4 0.78 NG/DL (0.76-1.46)
== END ==
LOC: M SFHCPLAZ 10:54
PROVIDERS: ATTEND Family Medicine
DX: Z00.00 Encounter for general adult medical examination without abnormal findings (principal); Z13.29 Encounter for screening for other suspected endocrine disorder; E78.1 Pure hyperglyceridemia

== ENCOUNTER → 2017-03-14 | Outpatient (REF) | payer OTHER | LOC: M SMT 11:22 | PROVIDERS: ATTEND Urology | DX: N45.3 Epididymo-orchitis (principal) ==

== ENCOUNTER → 2017-03-25 | Outpatient (REF) | payer OTHER | LOC: M SFHCPLAZ 11:12 | PROVIDERS: ATTEND Family Medicine | DX: E55.9 Vitamin D deficiency, unspecified (principal) ==

== ENCOUNTER → 2017-08-26 | Outpatient (REF) | payer OTHER ==
[2017-08-26 14:08] LABS: PSA SCREENING 0.35 NG/ML (< 4.0)
== END ==
LOC: M SFHCPLAZ 11:05
DX: Z12.5 Encounter for screening for malignant neoplasm of prostate (principal)

== ENCOUNTER → 2017-10-17 | Outpatient (REF) | payer OTHER ==
[2017-10-17 15:44] LABS: BASO % 0.3 % (0.0-1.0); EOS # 0.1 10^3/uL (0.0-0.50); EOS % 1.3 % (0.0-3.0); HEMATOCRIT 40.2 % (42.0-52.0); HEMOGLOBIN 13.5 g/dl (13.5-17.5); IMMATURE GRANULOCYTE % 0.4 % (0-3.0); LYMPH # 1.8 10^3/uL (1.5-4.5); LYMPH % 18.7 % (24.0-44.0); MEAN CORPUSCULAR HEMOGLOBIN 32.5 pg (27.0-33.0); MEAN CORPUSCULAR HGB CONC 33.6 g/dl (32.0-36.5); MEAN CORPUSCULAR VOLUME 96.9 fl (80.0-96.0); MONO # 0.6 10^3/uL (0.0-0.8); MONO % 5.8 % (0.0-5.0); NEUTROPHILS % 73.5 % (36.0-66.0); PLATELET COUNT, AUTOMATED 224 10^3/uL (150-450); RED BLOOD COUNT 4.15 10^6/uL (4.30-6.10); RED CELL DISTRIBUTION WIDTH 12.2 % (11.5-14.5); WHITE BLOOD COUNT 9.5 10^3/uL (4.0-10.0)
[2017-10-17 20:43] LABS: TOTAL 25(OH) VITAMIN D 23.7 NG/ML (30.0-100.0)
== END ==
LOC: M SFHCPLAZ 14:31
DX: E55.9 Vitamin D deficiency, unspecified (principal); D64.9 Anemia, unspecified
CPT/HCPCS: 82306

== ENCOUNTER 2018-02-26 10:02 | Emergency (ER) | payer OTHER | END 2018-02-26 11:11 | disposition left against medical advice (07) | LOC: M ED 10:02 | DX: Z53.29 Procedure and treatment not carried out because of patient's decision for other reasons (principal) ==

== ENCOUNTER 2018-10-29 15:08 | Emergency (ER) | payer OTHER ==
[~2018-10-29] VITALS: Ht 177.8 cm; Wt 119.5 kg
[~2018-10-29 15:08] MED LIST changes: -AMLO5TAB2 PO; +AMLO5TAB6 PO; -ASPI81CH3 PO; +ASPI81CH48 PO; -EFFE150C PO; +EFFE150C2 PO; +ESCI20TA; -SULF1TAB23 PO; +SULF1TAB93 PO; +VENL-65 PO; -VENL150T PO; +VENL150T14 PO; -VENL75TA3 PO
[2018-10-29] MEDS ORDERED: TAMS1CAP17 PO (15:28)
[2018-10-29 16:05] LABS: BASO # 0.1 10^3/uL (0.0-0.2); BASO % 0.4 % (0.0-1.0); EOS % 0.3 % (0.0-3.0); HEMATOCRIT 43.4 % (42.0-52.0); HEMOGLOBIN 14.8 g/dl (13.5-17.5); LYMPH # 1.2 10^3/uL (1.5-4.5); LYMPH % 9.8 % (24.0-44.0); MEAN CORPUSCULAR HEMOGLOBIN 32.7 pg (27.0-33.0); MEAN CORPUSCULAR HGB CONC 34.1 g/dl (32.0-36.5); MONO # 0.6 10^3/uL (0.0-0.8); MONO % 4.9 % (0.0-5.0); NEUTROPHILS # 10.7 10^3/uL (1.8-7.7); NEUTROPHILS % 84.2 % (36.0-66.0); PLATELET COUNT, AUTOMATED 237 10^3/uL (150-450); RED BLOOD COUNT 4.52 10^6/uL (4.30-6.10); WHITE BLOOD COUNT 12.7 10^3/uL (4.0-10.0)
[2018-10-29] MEDS ORDERED: RABIES IMMUNE GLOBULIN 1500 INTERNATIONAL UNIT/5ML VIAL (90375) IM ONE ×2 (16:15→16:45)
[2018-10-29] MEDS ORDERED: RABIES VACCINE HUMAN 2.5 INTERNATIONAL UNITS/ML VIAL (90675) IM ONE (16:15)
[2018-10-29] MEDS ORDERED: ADACEL/BOOSTRIX VACCINE (DIPHTH/PERTUSS/ACELL/TETANUS)0.5ML SYR (90715) IM ONE (16:15)
[2018-10-29 16:32] LABS: ALBUMIN 4.1 GM/DL (3.2-5.2); ALT/SGPT 30 U/L (12-78); BILIRUBIN,DIRECT 0.3 MG/DL (0.0-0.2); BILIRUBIN,TOTAL 1.1 MG/DL (0.2-1.0); BLOOD UREA NITROGEN 9 MG/DL (7-18); CARBON DIOXIDE LEVEL 26 MEQ/L (21-32); CHLORIDE LEVEL 110 MEQ/L (98-107); CREATININE FOR GFR 0.82 MG/DL (0.70-1.30); GLOMERULAR FILTRATION RATE > 60.0 (>56); GLUCOSE, FASTING 96 MG/DL (70-100); LIPASE 59 U/L (73-393); POTASSIUM SERUM 3.5 MEQ/L (3.5-5.1); SODIUM LEVEL 142 MEQ/L (136-145); TOTAL PROTEIN 7.7 GM/DL (6.4-8.2)
[2018-10-29] MEDS ORDERED: ISOVUE-370 76% 100ML VIAL (Q9967) As Ordered ONE (16:35)
[2018-10-29] MEDS ORDERED: RABIES IMMUNE GLOBULIN 300 INTERNATIONAL UNITS/1ML VIAL (90375) IM ONE (16:45)
--- NOTE | 2018-10-29 17:25 | REPVR ---
EXAM: CT Abdomen and Pelvis With Contrast EXAM DATE/TIME: 10/29/2018 4:40 PM CLINICAL HISTORY: 58 years old, male; Abdominal pain; Localized; Left lower quadrant (llq); Additional info: Llq pain; R/O colitis vs diverticulitis TECHNIQUE: Imaging protocol: Axial computed tomography images of the abdomen and pelvis with intravenous contrast. Coronal and sagittal reformatted images were created and reviewed. Radiation optimization: All CT scans at this facility use at least one of these dose optimization techniques: automated exposure control; mA and/or kV adjustment per patient size (includes targeted exams where dose is matched to clinical indication); or iterative reconstruction. Contrast material: ISOVUE 370; Contrast volume: 100 ml; Contrast route: IV; COMPARISON: CT ABD PELVIS W/O FOL BY WIT 01/04/2017 12:54 PM FINDINGS: ABDOMEN: Liver: There is a diffuse decrease in hepatic parenchymal density, consistent with fatty infiltration. Gallbladder and bile ducts: Normal. No calcified stones. No ductal dilation. Pancreas: Normal. No ductal dilation. Spleen: Normal. No splenomegaly. Adrenals: There is bilateral adrenal hyperplasia. Kidneys and ureters: Small right renal cyst measures 11 mm. Stomach and bowel: There is a diffusely boggy appearance of the transverse, left and sigmoid colon with mural stratification and pericolonic inflammatory changes with an ahaustral countour. Findings consistent with acute colitis. No abscess demonstrated. Appendix: No evidence of appendicitis. PELVIS: Bladder: There is diffuse thickening of the wall of the bladder without significant perivesicular inflammatory changes. Findings may be related to changes of chronic bladder outlet obstruction however clinical correlation to exclude cystitis suggested. Reproductive: Unremarkable as visualized. ABDOMEN and PELVIS: Intraperitoneal space: Normal. No free air. No significant fluid collection. Bones/joints: The spine demonstrates mild degenerative changes. Mild central spinal stenosis at L3-4, moderate central spinal stenosis at L4-5 and bulging annulus with left posterior disc protrusion at L5-S1. Clinical correlation to exclude impingement of the left S1 nerve root suggested. CT/MRI correlation would be helpful if clinically desired. Soft tissues: Unremarkable. Vasculature: The aorta demonstrates mild atherosclerotic calcification. Lymph nodes: Normal. No enlarged lymph nodes. IMPRESSION: 1. There is a diffuse decrease in hepatic parenchymal density, consistent with fatty infiltration. 2. There is a diffusely boggy appearance of the transverse, left and sigmoid colon with mural stratification and pericolonic inflammatory changes with an ahaustral countour. Findings consistent with acute colitis. No abscess demonstrated. 3. There is diffuse thickening of the wall of the bladder without significant perivesicular inflammatory changes. Findings may be related to changes of chronic bladder outlet obstruction however clinical correlation to exclude cystitis suggested. 4. There is bilateral adrenal hyperplasia. Electronically signed by: Audie Moreno On 10/29/2018 17:25:12 PM
[2018-10-29] MEDS ORDERED: FLAG500T PO (18:15)
[2018-10-29] MEDS ORDERED: metroNIDAZOLE (FLAGYL) 500 MG TAB PO ONE (18:15)
[2018-10-29 18:28] VITALS: BP 152/83
--- NOTE | 2018-10-30 09:06 | ED PDOC ---
Post-Departure Follow-Up beryl good faxed formal report of ct abd/p for fu Velma Valerio MD Oct 30, 2018 09:06
== END 2018-10-29 18:30 | disposition home or self-care (01) ==
LOC: M ED 15:08
DX: R11.10 Vomiting, unspecified (principal); R19.7 Diarrhea, unspecified; B96.7 Clostridium perfringens [C. perfringens] as the cause of diseases classified elsewhere; Z20.3 Contact with and (suspected) exposure to rabies; I10 Essential (primary) hypertension; R56.9 Unspecified convulsions; F33.9 Major depressive disorder, recurrent, unspecified; Z79.899 Other long term (current) drug therapy; Z79.82 Long term (current) use of aspirin; Z88.2 Allergy status to sulfonamides; Z88.8 Allergy status to other drugs, medicaments and biological substances
CPT/HCPCS: 36415; 74177; 80048; 80076; 81001; 83690; 85025; 87507; 90375; 90471; 90675; 90715; 96372; 99284; Q9967

== ENCOUNTER 2018-11-01 22:28 | Emergency (ER) | payer OTHER ==
[~2018-11-01] VITALS: Ht 177.8 cm; Wt 119.5 kg
[2018-11-01 22:28] VITALS: BP 129/62
[~2018-11-01 22:28] MED LIST changes: +FLAG500T PO; +TAMS1CAP17 PO
== END 2018-11-02 00:18 | disposition left against medical advice (07) ==
LOC: M ED 22:28
DX: Z20.3 Contact with and (suspected) exposure to rabies (principal); Z23 Encounter for immunization; Z53.21 Procedure and treatment not carried out due to patient leaving prior to being seen by health care provider

== ENCOUNTER 2018-11-02 00:38 | Emergency (ER) | payer OTHER ==
[~2018-11-02] VITALS: Ht 177.8 cm; Wt 119.5 kg
[2018-11-02] MEDS ORDERED: RABIES VACCINE HUMAN 2.5 INTERNATIONAL UNITS/ML VIAL (90675) IM ONE (01:15)
[2018-11-02 01:33] VITALS: BP 136/70
== END 2018-11-02 01:35 | disposition home or self-care (01) ==
LOC: M ED 00:38
DX: Z23 Encounter for immunization (principal); Z20.3 Contact with and (suspected) exposure to rabies

== ENCOUNTER 2018-11-05 12:01 | Emergency (ER) | payer OTHER ==
[~2018-11-05] VITALS: Ht 177.8 cm; Wt 121.8 kg
[2018-11-05 12:02] VITALS: BP 122/61
[2018-11-05] MEDS ORDERED: RABIES VACCINE HUMAN 2.5 INTERNATIONAL UNITS/ML VIAL (90675) IM ONE (12:15)
== END 2018-11-05 12:46 | disposition home or self-care (01) ==
LOC: M ED 12:01
DX: Z23 Encounter for immunization (principal); Z20.3 Contact with and (suspected) exposure to rabies; I10 Essential (primary) hypertension; Z79.899 Other long term (current) drug therapy; Z79.82 Long term (current) use of aspirin; Z88.2 Allergy status to sulfonamides; Z88.8 Allergy status to other drugs, medicaments and biological substances

== ENCOUNTER 2018-11-12 10:06 | Emergency (ER) | payer OTHER ==
[~2018-11-12] VITALS: Ht 177.8 cm; Wt 122.3 kg
[2018-11-12 10:08] VITALS: BP 113/63
[2018-11-12] MEDS ORDERED: RABIES VACCINE HUMAN 2.5 INTERNATIONAL UNITS/ML VIAL (90675) IM ONE (10:30)
== END 2018-11-12 10:32 | disposition home or self-care (01) ==
LOC: M ED 10:06
DX: Z20.3 Contact with and (suspected) exposure to rabies (principal); Z23 Encounter for immunization; Z79.82 Long term (current) use of aspirin; Z79.899 Other long term (current) drug therapy; Z88.8 Allergy status to other drugs, medicaments and biological substances

== ENCOUNTER → 2018-12-12 | Outpatient (REF) | payer OTHER ==
[2018-12-12 19:53] LABS: ALBUMIN 3.8 GM/DL (3.2-5.2); ALT/SGPT 22 U/L (12-78); BILIRUBIN,TOTAL 0.5 MG/DL (0.2-1.0); BLOOD UREA NITROGEN 16 MG/DL (7-18); CALCIUM LEVEL 8.4 MG/DL (8.5-10.1); CARBON DIOXIDE LEVEL 28 MEQ/L (21-32); CHLORIDE LEVEL 112 MEQ/L (98-107); CHOLESTEROL LEVEL 106 MG/DL (<200); CHOLESTEROL RISK RATIO 4.076 (<5); CREATININE FOR GFR 0.87 MG/DL (0.70-1.30); GLOMERULAR FILTRATION RATE > 60.0 (>56); GLUCOSE, FASTING 81 MG/DL (70-100); HDL CHOLESTEROL 26 MG/DL (>40); LDL CHOLESTEROL 40 MG/DL (<100); NON-HDL-C 80 MG/DL; POTASSIUM SERUM 4.1 MEQ/L (3.5-5.1); SODIUM LEVEL 146 MEQ/L (136-145); TOTAL PROTEIN 7.3 GM/DL (6.4-8.2); TRIGLYCERIDES LEVEL 200 MG/DL (<150)
[2018-12-12 20:16] LABS: HEMOGLOBIN A1c 5.6 %
[2018-12-12 20:25] LABS: MALB URINE SIEMENS 5.7 MG/L; MAU/CREAT RATIO 3.6 MCG/MG (0.0-30.0)
== END ==
LOC: M SFHCPLAZ 13:48
PROVIDERS: ATTEND Family Medicine
DX: I10 Essential (primary) hypertension (principal); Z13.1 Encounter for screening for diabetes mellitus; E78.2 Mixed hyperlipidemia; E55.9 Vitamin D deficiency, unspecified

== ENCOUNTER → 2019-05-23 | Outpatient (CLI) | payer OTHER ==
--- NOTE | 2019-05-25 01:04 | ECGEPIP ---
[facility] Test Date: 2019-05-23 Pat Name: SHERLY [place] Department: Room: - Gender: Male College Advisor: ANDREA : 1960 Requested By: MEHDI BRADEN PA-C Order Number: [id number] Reading MD: Melvin Modi Measurements Intervals [place] Rate: 61 P: 47 [place]: 184 QRS: 30 QRSD: 100 T: 48 QT: 406 QTc: 410 Interpretive Statements SINUS RHYTHM NO PRIOR TRACING IN THE SYSTEM FOR COMPARISON Electronically Signed on 05-25-2019 1:03:45 EST by Melvin Modi
== END ==
LOC: M EKG 10:16
PROVIDERS: ATTEND Physician Assistant
DX: Z01.810 Encounter for preprocedural cardiovascular examination (principal)

== ENCOUNTER → 2019-06-11 | Outpatient (REF) | payer OTHER ==
[2019-06-11 12:53] LABS: IONIZED CALCIUM 4.7 MG/DL (4.5-5.3)
[2019-06-11 13:27] LABS: ALT/SGPT 26 U/L (12-78); BILIRUBIN,TOTAL 0.8 MG/DL (0.2-1.0); BLOOD UREA NITROGEN 17 MG/DL (7-18); CALCIUM LEVEL 8.7 MG/DL (8.5-10.1); CARBON DIOXIDE LEVEL 29 MEQ/L (21-32); CHLORIDE LEVEL 107 MEQ/L (98-107); CREATININE FOR GFR 0.87 MG/DL (0.70-1.30); GLOMERULAR FILTRATION RATE > 60.0 (>56); GLUCOSE, FASTING 95 MG/DL (70-100); POTASSIUM SERUM 4.3 MEQ/L (3.5-5.1); SODIUM LEVEL 141 MEQ/L (136-145)
== END ==
LOC: M SFHCPLAZ 11:03 → M SFHCADAM 11:04
PROVIDERS: ATTEND Family Medicine
DX: N18.2 Chronic kidney disease, stage 2 (mild) (principal); Z12.5 Encounter for screening for malignant neoplasm of prostate; E55.9 Vitamin D deficiency, unspecified; E83.51 Hypocalcemia

== ENCOUNTER 2019-07-03 20:08 | Emergency (ER) | payer OTHER ==
[~2019-07-03] VITALS: Ht 177.8 cm; Wt 120.0 kg
[~2019-07-03 20:08] MED LIST changes: -OXYC1TAB23
[2019-07-03] MEDS ORDERED: OXYC1TAB23 (20:17)
[2019-07-03 20:49] LABS: HEMOGLOBIN 14.3 g/dl (13.5-17.5); MEAN CORPUSCULAR HGB CONC 33.3 g/dl (32.0-36.5); MEAN CORPUSCULAR VOLUME 99.3 fl (80.0-96.0); PLATELET COUNT, AUTOMATED 210 10^3/uL (150-450); RED BLOOD COUNT 4.33 10^6/uL (4.30-6.10); WHITE BLOOD COUNT 8.4 10^3/uL (4.0-10.0)
[2019-07-03 21:28] VITALS: BP 119/64
== END 2019-07-03 21:31 | disposition home or self-care (01) ==
LOC: M ED 20:08
DX: L76.21 Postprocedural hemorrhage of skin and subcutaneous tissue following a dermatologic procedure (principal); L72.0 Epidermal cyst; I10 Essential (primary) hypertension; H54.415A Blindness right eye category 5, normal vision left eye; Z87.820 Personal history of traumatic brain injury; Z79.82 Long term (current) use of aspirin; Z79.899 Other long term (current) drug therapy; Z88.1 Allergy status to other antibiotic agents

== ENCOUNTER → 2019-07-03 | Outpatient (REF) | payer OTHER ==
[~2019-07-03] MED LIST changes: +OXYC1TAB23
== END ==
LOC: M LAB REF 16:13
PROVIDERS: ATTEND Orthopaedic Surgery Hand Surgery
DX: L72.0 Epidermal cyst (principal)

== ENCOUNTER → 2020-07-10 | Outpatient (REF) | payer OTHER ==
[~2020-07-10] MED LIST changes: +AMLO1TAB24 PO; -AMLO5TAB6 PO; +OXYC1TAB23
[2020-07-15 07:06] LABS: LACOSAMIDE LEVEL 7.8 ug/mL (5.0-10.0)
== END ==
LOC: M LABDRWAD 12:44
DX: Z51.81 Encounter for therapeutic drug level monitoring (principal)

== ENCOUNTER → 2021-02-04 | Outpatient (REF) | payer OTHER ==
[~2021-02-04] MED LIST changes: +BACTDSTA PO; -ESCI20TA; +ESCI20TA16; -SULF1TAB93 PO
== END ==
LOC: M LAB REF 12:48
PROVIDERS: ATTEND Nurse Practitioner Family
DX: E83.42 Hypomagnesemia (principal)

== ENCOUNTER 2021-05-17 14:31 | Inpatient (IN) | payer OTHER ==
[~2021-05-17] VITALS: Ht 177.8 cm; Wt 118.9 kg
[2021-05-17] MEDS ORDERED: COMBIVENT RESPIMAT 100-20MCG INHALER 4GM INH ONE (15:05)
[2021-05-17 15:17] LABS: BASO % 0.1 % (0.0-1.0); EOS % 0.1 % (0.0-3.0); HEMATOCRIT 40.9 % (42.0-52.0); HEMOGLOBIN 14.1 g/dl (13.5-17.5); LYMPH % 12.6 % (24.0-44.0); MEAN CORPUSCULAR HEMOGLOBIN 32.3 pg (27.0-33.0); MEAN CORPUSCULAR HGB CONC 34.5 g/dl (32.0-36.5); MEAN CORPUSCULAR VOLUME 93.8 fl (80.0-96.0); MONO # 0.4 10^3/uL (0.0-0.8); MONO % 5.3 % (2.0-8.0); NEUTROPHILS # 6.2 10^3/uL (1.5-8.5); NEUTROPHILS % 81.5 % (36.0-66.0); PLATELET COUNT, AUTOMATED 171 10^3/uL (150-450); RED BLOOD COUNT 4.36 10^6/uL (4.30-6.10); WHITE BLOOD COUNT 7.6 10^3/uL (4.0-10.0)
--- NOTE | 2021-05-17 15:22 | REP ---
INDICATION: DYSPNEA/COUGH. COMPARISON: Portable chest, 08/14/2013. TECHNIQUE: Upright AP chest image was obtained. FINDINGS: There is diffuse mild peribronchial consolidation consistent with viral pneumonia or bronchitis. The heart borders and mediastinum are normal. There are no pleural effusions. IMPRESSION: Bilateral peribronchial consolidation consistent with viral pneumonia or acute bronchitis. <Electronically signed by Basil Hummel > 05/17/21 [id number]
--- OUTSIDE RECORDS SUMMARY | 2021-05-17 15:32 | CCD ---
Author Author [facility] Organization [facility] Address Unknown Phone Unavailable Care Team Providers Care Business Systems Administrator Name Role Phone Yazan Vann Unavailable PROBLEMS Type Condition ICD9-CM Code XMK45-HR Code Onset Dates Condition S tatus W/U Status Risk SNOMED Code Notes Problem Migraine without status migr ainosus, not intractable, unspecified migraine type G43.909 Active confirmed 41129065 Problem Essential hypertension I10 Active confirmed 47422553 Problem Seizures, post-traumatic R56.1 Active confirmed 392065903 Problem Chronic kidney disease, stage II (mild) N18.2 Active confirmed 737988169 Problem Major depressive disorder with single episode, i n partial remission F32.4 Active confirmed 89476425 Problem 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 Active confi rmed 32803236 Problem Body mass index (BMI) 38.0-38.9, adult Z68.38 A ctive confirmed 128495746863117 Problem Benign prostatic hyperplasia with lower urinary tract symptoms N40.1 Active confirmed 52574567047610 Problem Lower urinary tract symptoms due to benign prost atic hyperplasia N40.1 Active confirmed 224855987 Problem Anxiety F41.9 Active confirmed 98141469 Problem Vitamin D deficiency E55.9 Active confirmed 14107612 Problem Obstructive sleep apnea syndrome G47.33 Active conf irmed 61094202 Problem Vitamin D insufficiency E55.9 Active confirmed 664082697 Problem Morbid (severe) obesity due to excess calories E66 .01 Active confirmed 86503812690824 Problem Depression with anxiety F41.8 Active confirmed 612260550 Problem Mixed hyperlipidemia E78.2 Active confirmed 464514307 Problem Mild depression F32.0 Active confirmed 3104 21947 Problem Hypocalcemia E83.51 Active confirmed 1311173 Problem Moderate anxiety F41.9 Active confirmed 613 40489 ALLERGIES Allergen (clinical drug ingredient) Drug/Non Drug Allergy do cumented on EMR Reaction Allergy Type Onset Date Status sulfamethoxazole / trimethoprim Bactrim([facility] Code:[address]-50) Rash Drug Allergy Active ENCOUNTERS from 1960 to 2021-04-16 Encounter Location Date Provider Diagnosis [facility] [place] [facility] [address] [phone] [place] [address] 08 Mar, 2021 Yazan Vann IMMUNIZATIONS Vaccine Route Administration Date Status Influenza 18 yrs & older Flublok Unknown May 17, 2018 Others TDAP 0.5mL (Boostrix) IM Intramuscular Mar 12, 2016 Administe red TD PED 0.5mL Tetanus Unknown Mar 12, 2016 Pending Influenza 6mo & up Fluzone IM Intramuscular Jun 25, 2016 Admi nistered Influenza 6mo & up Fluzone IM Intramuscular Jul 17, 2012 Admi nistered SOCIAL HISTORY Tobacco Use: Social History Observation Description Date Details (start date - stop date) Former Smoker Sex Assigned At : Social History Observation Description Sex Assigned At Unknown Education: Question Answer Notes Level of Education: 8th Grade Audit Question Answer Notes Total Score: 0 Interpretation: Alcohol Education Language: Question Answer Notes Languages spoken: Bangladeshi Moravian: Question Answer Notes Moravian No buddhist beliefs that would impact health care. Sexual Hx: Question Answer Notes Had sex in the last 12 months (vaginal, oral, or anal)? Yes Drug and Alcohol Question Answer Notes Total Score: 0 Interpretation: No problems reported Alcohol Screening: Question Answer Notes Did you have a drink containing alcohol in the past year? No Points 0 Interpretation Negative BMI Care Goal Follow-Up Question Answer Notes Above Normal BMI Follow-Up Giving encouragement to exercise Tobacco Use: Question Answer Notes Are you a: former smoker How long has it been since you last smoked? > 10 years REASON FOR REFERRAL No Information VITAL SIGNS No information MEDICATIONS Medication SIG (Take, Route, Frequency, Duration) Notes Start Da te End Date Status Escitalopram Oxalate 10 MG 1 tablet with 20 mg tab for total of 30 mg daily Orally Once a day for 30 days Jun, No t-Taking Nortriptyline HCl 25 MG 1 capsule Orally Once a day Not-Taking Effexor XR 75 MG 1 capsule with food Orally O nce a day (with 150mg) for 30 day(s) Dec, Not-Taking Tahkoexhss-LYRD-Tcncysdg 325-50-40 MG 1 tablet as needed Orally raman ry 4 hrs Active Effexor XR 150 MG 1 capsule with food Orally twice daily 1 3 Dec, 2015 Not-Taking Keppra 500 mg 2 tabs in am and Orally 3 tab po QPM (Trickey) Active Tamsulosin HCl 0.4 MG TAKE ONE CAPSULE BY MOUTH EVERY DAY for 30 Active Minoxidil 2.5 MG 1 tablet Orally Once a day Active Vitamin D 50 MCG (1999 UT) 1 tablet Orally Once a day for 30 Active Aspirin Adult Low Strength 81 MG 1 tablet Orally Once a day Active Topiramate 50 MG 1 tablet Orally Once a day Active Amlodipine 5mg 1 tablet oral daily A ctive Vimpat 200 MG 1 tablet Orally Twice a day (Trickey) Active Atorvastatin Calcium 20 MG TAKE ONE TABLET BY MOUTH EVERY DAY for 30 Active Escitalopram Oxalate 20 MG TAKE ONE TABLET BY MOUTH EVERY DAY for 30 Active PROCEDURES No Information RESULTS No Results REASON FOR VISIT Pulmonolgy MEDICAL (GENERAL) HISTORY Type Description Date Medical History Depression Medical History Post Traumatic Seizures Medical History Traumatic Brain Injury Medical History Hypertension (Diagnosed 01/12) Medical History Insomnia with Night Terrors Medical History Chronic Frontal/Orbital Headaches Medical History Syncopal Episodes X2 in 10/21 13-Normal Echo, Normal Holter Monito Surgical History Craniotomy with plate in right side of h ead 1997 Surgical History Drainage of Hematoma Dr. Lewis [address]. Davis-Normal repeat in 10 years 11/2012 Hospitalization History Cellulitis of right leg and right le g hematoma 2011 Hospitalization History Trauma after fall from [facility] [employer] [facility] 1997 Hospitalization History [facility]-Infection 01/03/17-01/05/17 Hospitalization History Allergic Reaction, infection was [facility] 01/10/17-01/12/17 Goals Section No Information Health Concerns No Information MEDICAL EQUIPMENT No Information MENTAL STATUS No Information FUNCTIONAL STATUS No Information ASSESSMENTS No Information PLAN OF TREATMENT Medication Medication Name Sig Start Date Stop Date Atorvastatin Calcium 20 MG TAKE ONE TABLET BY MOUTH EVERY DAY fo r 30 Vitamin D 50 MCG (1999 UT) 1 tablet Orally Once a day for 30 Escitalopram Oxalate 20 MG TAKE ONE TABLET BY MOUTH EVERY DAY fo r 30 Tamsulosin HCl 0.4 MG TAKE ONE CAPSULE BY MOUTH EVERY DAY for 30 Next Appt Details Provider Name:Yazan Vann, 2021 10: 00:00 AM, [address], , [place], [address], Insurance Providers Payer Name Payer Address Payer Phone Insured Name Patient Relati onship to Insured Coverage Start Date Coverage End Date [facility] [employer] [facility] [address] [facility] [id number] [phone] SHERLY RHODES self
--- OUTSIDE RECORDS SUMMARY | 2021-05-17 15:32 | CCD ---
Author Author [facility] Organization [facility] Address Unknown Phone Unavailable Support Name Relationship Address Phone JOSÉ MEDARDO Next Of Kin [address] [place] [address] NA, NA Next Of Kin Unknown Unavailable LITTLE RHODES Next Of Kin [address] [place] [address] UN Next Of Kin Unknown Unavailable JOSÉ BENJI Next Of Kin [facility] [place] [address] UE Next Of Kin Unknown Unavailable UNEMPLOYED Next Of Kin - -, - - ANITA KUMAR Next Of Kin [facility] [place] [address] Niranjan Kumar [address] [place] [address] Unavailable Re-disclosure Warning The records that you are about to access may contain information from federally-assisted alcohol or drug abuse programs. If such information is present, then the following federally mandated warning applies: This information has been disclosed to you from records protected by federal confidentiality rules (42 CFR part 2). The federal rules prohibit you from making any further disclosure of this information unless further disclosure is expressly permitted by the written consent of the person to whom it pertains or as otherwise permitted by 42 CFR part 2. A general authorization for the release of medical or other information is NOT sufficient for this purpose. The Federal rules restrict any use of the information to criminally investigate or prosecute any alcohol or drug abuse patient.The records that you are about to access may contain highly sensitive health information, the redisclosure of which is protected by Article 27-F of the [facility] Public Health law. If you continue you may have access to information: Regarding HIV / AIDS; Provided by facilities licensed or operated by the [facility] Office of Mental Health; or Provided by the [facility] Office for People With Developmental Disabilities. If such information is present, then the following [facility] mandated warning applies: This information has been disclosed to you from confidential records which are protected by state law. State law prohibits you from making any further disclosure of this information without the specific written consent of the person to whom it pertains, or as otherwise permitted by law. Any unauthorized further disclosure in violation of state law may result in a fine or fpc sentence or both. A general authorization for the release of medical or other information is NOT sufficient authorization for further disc losure. Family History Family Member Name Family Member Gender Family Member Status Date o f Status Description Data Source(s) Unknown Male Problem [facility] ([facility]) Encounters Encounter Providers Location Date Indications Data Source(s ) Unknown [address] [facility] [id number] 03/11/2021 12:00:00 AM EDT eCW1 ([facility]) Unknown [address] [facility] [address] 01/29/2021 12:00:00 AM EDT [facility] Outpatient [address] [facility] [address] 01/16/2021 12:00:00 AM EDT eCW1 ([facility]) Unknown [address] [facility] [address] 01/16/2021 12:00:00 AM EDT eCW1 ([facility]) Unknown [address] [facility] [address] 01/15/2021 12:00:00 AM EDT eCW1 ([facility]) Unknown [address] [facility] [address] 01/09/2021 12:00:00 AM EDT [facility]CW1 ([facility] Unknown [address] [facility] [address] 12/19/2020 12:00:00 AM EDT [facility]CW1 ([facility] Medications Medication Brand Name Start Date Product Form Dose Route Admi nistrative Instructions Pharmacy Instructions Status Indications Reaction Description Data Source(s) atorvastatin 20 MG Oral Tablet ATORVASTATIN CALCIUM 03/07/2021 1 2:00:00 AM EDT tablet 30 TAKE ONE TABLET BY MOUTH EVERY D AY TAKE ONE TABLET BY MOUTH EVERY DAY SOLD: 04/24/2021 [facility] atorvastatin 20 MG Oral Tablet ATORVASTATIN CALCIUM 03/07/2021 1 2:00:00 AM EDT tablet 30 TAKE ONE TABLET BY MOUTH EVERY D AY TAKE ONE TABLET BY MOUTH EVERY DAY SOLD: 03/22/2021 [facility] Escitalopram 20 MG Oral Tablet ESCITALOPRAM OXALATE 03/07/2021 1 2:00:00 AM EDT tablet 30 TAKE ONE TABLET BY MOUTH EVERY D AY TAKE ONE TABLET BY MOUTH EVERY DAY SOLD: 04/24/2021 [facility] Escitalopram 20 MG Oral Tablet ESCITALOPRAM OXALATE 03/07/2021 1 2:00:00 AM EDT tablet 30 TAKE ONE TABLET BY MOUTH EVERY D AY TAKE ONE TABLET BY MOUTH EVERY DAY SOLD: 03/22/2021 [facility] 0.4 mg 03/06/2021 12:00:00 AM EDT capsule 30 TAKE ONE CAPSULE BY MOUTH EVERY DAY TAKE ONE CAPSULE BY MOUTH EVERY DAY SOLD: 03/22/2021 [facility] 0.4 mg 03/06/2021 12:00:00 AM EDT capsule 30 TAKE ONE CAPSULE BY MOUTH EVERY DAY TAKE ONE CAPSULE BY MOUTH EVERY DAY SOLD: 04/24/2021 [facility] Escitalopram 20 MG Oral Tablet ESCITALOPRAM OXALATE 01/31/2021 1 2:00:00 AM EDT tablet 30 TAKE ONE TABLET BY MOUTH EVERY D AY TAKE ONE TABLET BY MOUTH EVERY DAY SOLD: 02/09/2021 [facility] 50 mcg (2,000 unit) 01/31/2021 12:00:00 AM EDT tablet 30 TAKE ONE TABLET BY MOUTH EVERY DAY TAKE ONE TABLET BY MOUTH EVERY DAY SOLD: 04/24/2021 [facility] 50 mcg (2,000 unit) 01/31/2021 12:00:00 AM EDT tablet 30 TAKE ONE TABLET BY MOUTH EVERY DAY TAKE ONE TABLET BY MOUTH EVERY DAY SOLD: 02/09/2021 [facility] atorvastatin 20 MG Oral Tablet ATORVASTATIN CALCIUM 01/31/2021 1 2:00:00 AM EDT tablet 30 TAKE ONE TABLET BY MOUTH EVERY D AY TAKE ONE TABLET BY MOUTH EVERY DAY SOLD: 02/09/2021 [facility] 50 mcg (2,000 unit) 01/31/2021 12:00:00 AM EDT tablet 30 TAKE ONE TABLET BY MOUTH EVERY DAY TAKE ONE TABLET BY MOUTH EVERY DAY SOLD: 03/22/2021 [facility] 200 mg 01/16/2021 12:00:00 AM EDT tablet 60 TAKE ONE TABLET BY MOUTH TWICE A DAY, MAXIMUM DAILY DOSE = 2 TABLETS TAKE ONE TABLET BY MOUTH TWICE A DAY, MAXIMUM DAILY DOSE = 2 TABLETS SOLD: 03/22/2021 [facility] 500 mg 01/16/2021 12:00:00 AM EDT tablet extended release 24 hr 150 TAKE TWO TABLETS BY MOUTH EVERY MORNING AND 3 TABLETS AT BEDTIME TAKE TWO TABLETS BY MOUTH EVERY MORNING AND 3 TABLETS AT BEDTIME SOLD: 03/25/2021 [facility] 200 mg 01/16/2021 12:00:00 AM EDT tablet 60 TAKE ONE TABLET BY MOUTH TWICE A DAY, MAXIMUM DAILY DOSE = 2 TABLETS TAKE ONE TABLET BY MOUTH TWICE A DAY, MAXIMUM DAILY DOSE = 2 TABLETS SOLD: 02/19/2021 [facility] 500 mg 01/16/2021 12:00:00 AM EDT tablet extended release 24 hr 150 TAKE TWO TABLETS BY MOUTH EVERY MORNING AND 3 TABLETS AT BEDTIME TAKE TWO TABLETS BY MOUTH EVERY MORNING AND 3 TABLETS AT BEDTIME SOLD: 02/19/2021 [facility] 500 mg 01/16/2021 12:00:00 AM EDT tablet extended release 24 hr 150 TAKE TWO TABLETS BY MOUTH EVERY MORNING AND 3 TABLETS AT BEDTIME TAKE TWO TABLETS BY MOUTH EVERY MORNING AND 3 TABLETS AT BEDTIME SOLD: 04/28/2021 [facility] 500 mg 01/16/2021 12:00:00 AM EDT tablet extended release 24 hr 150 TAKE TWO TABLETS BY MOUTH EVERY MORNING AND 3 TABLETS AT BEDTIME TAKE TWO TABLETS BY MOUTH EVERY MORNING AND 3 TABLETS AT BEDTIME SOLD: 01/19/2021 [facility] 200 mg 01/16/2021 12:00:00 AM EDT tablet 60 TAKE ONE TABLET BY MOUTH TWICE A DAY, MAXIMUM DAILY DOSE = 2 TABLETS TAKE ONE TABLET BY MOUTH TWICE A DAY, MAXIMUM DAILY DOSE = 2 TABLETS SOLD: 01/19/2021 [facility] 200 mg 01/16/2021 12:00:00 AM EDT tablet 60 TAKE ONE TABLET BY MOUTH TWICE A DAY, MAXIMUM DAILY DOSE = 2 TABLETS TAKE ONE TABLET BY MOUTH TWICE A DAY, MAXIMUM DAILY DOSE = 2 TABLETS SOLD: 04/24/2021 [facility] Escitalopram 20 MG Oral Tablet ESCITALOPRAM OXALATE 12/20/2020 1 2:00:00 AM EDT tablet 30 TAKE ONE TABLET BY MOUTH EVERY D AY TAKE ONE TABLET BY MOUTH EVERY DAY SOLD: 12/26/2020 [facility] atorvastatin 20 MG Oral Tablet ATORVASTATIN CALCIUM 12/20/2020 1 2:00:00 AM EDT tablet 30 TAKE ONE TABLET BY MOUTH EVERY D AY TAKE ONE TABLET BY MOUTH EVERY DAY SOLD: 12/26/2020 [facility] 5 mg 11/06/2020 12:00:00 AM EDT tablet 30 TAKE ONE TABLET BY MOUTH EVERY DAY TAKE ONE TABLET BY MOUTH EVERY DAY SOLD: 03/22/2021 [facility] 81 mg 11/06/2020 12:00:00 AM EDT tablet,chewable 30 CHEW 1 TABLET BY MOUTH ONCE DAILY CHEW 1 TABLET BY MOUTH ONCE DAILY SOLD: 03/22/2021 [facility] 81 mg 11/06/2020 12:00:00 AM EDT tablet,chewable 30 CHEW 1 TABLET BY MOUTH ONCE DAILY CHEW 1 TABLET BY MOUTH ONCE DAILY SOLD: 11/13/2020 [facility] 5 mg 11/06/2020 12:00:00 AM EDT tablet 30 TAKE ONE TABLET BY MOUTH EVERY DAY TAKE ONE TABLET BY MOUTH EVERY DAY SOLD: 11/13/2020 [facility] 81 mg 11/06/2020 12:00:00 AM EDT tablet,chewable 30 CHEW 1 TABLET BY MOUTH ONCE DAILY CHEW 1 TABLET BY MOUTH ONCE DAILY SOLD: 04/24/2021 [facility] 2.5 mg 11/06/2020 12:00:00 AM EDT tablet 30 TAKE 1 TABLET BY MOUTH ONCE DAILY TAKE 1 TABLET BY MOUTH ONCE DAILY SOLD: 11/13/2020 [facility] 2.5 mg 11/06/2020 12:00:00 AM EDT tablet 30 TAKE 1 TABLET BY MOUTH ONCE DAILY TAKE 1 TABLET BY MOUTH ONCE DAILY SOLD: 03/22/2021 [facility] 81 mg 11/06/2020 12:00:00 AM EDT tablet,chewable 30 CHEW 1 TABLET BY MOUTH ONCE DAILY CHEW 1 TABLET BY MOUTH ONCE DAILY SOLD: 12/26/2020 [facility] 81 mg 11/06/2020 12:00:00 AM EDT tablet,chewable 30 CHEW 1 TABLET BY MOUTH ONCE DAILY CHEW 1 TABLET BY MOUTH ONCE DAILY SOLD: 02/09/2021 [facility] 2.5 mg 11/06/2020 12:00:00 AM EDT tablet 30 TAKE 1 TABLET BY MOUTH ONCE DAILY TAKE 1 TABLET BY MOUTH ONCE DAILY SOLD: 12/26/2020 [facility] 2.5 mg 11/06/2020 12:00:00 AM EDT tablet 30 TAKE 1 TABLET BY MOUTH ONCE DAILY TAKE 1 TABLET BY MOUTH ONCE DAILY SOLD: 04/24/2021 [facility] 2.5 mg 11/06/2020 12:00:00 AM EDT tablet 30 TAKE 1 TABLET BY MOUTH ONCE DAILY TAKE 1 TABLET BY MOUTH ONCE DAILY SOLD: 02/09/2021 [facility] 5 mg 11/06/2020 12:00:00 AM EDT tablet 30 TAKE ONE TABLET BY MOUTH EVERY DAY TAKE ONE TABLET BY MOUTH EVERY DAY SOLD: 12/26/2020 [facility] 5 mg 11/06/2020 12:00:00 AM EDT tablet 30 TAKE ONE TABLET BY MOUTH EVERY DAY TAKE ONE TABLET BY MOUTH EVERY DAY SOLD: 04/24/2021 [facility] 5 mg 11/06/2020 12:00:00 AM EDT tablet 30 TAKE ONE TABLET BY MOUTH EVERY DAY TAKE ONE TABLET BY MOUTH EVERY DAY SOLD: 02/09/2021 [facility] Escitalopram 20 MG Oral Tablet ESCITALOPRAM OXALATE 11/05/2020 1 2:00:00 AM EDT tablet 30 TAKE ONE TABLET BY MOUTH EVERY D AY TAKE ONE TABLET BY MOUTH EVERY DAY SOLD: 11/13/2020 [facility] Escitalopram 20 MG Oral Tablet ESCITALOPRAM OXALATE 08/26/2020 1 2:00:00 AM EST tablet 30 TAKE ONE TABLET BY MOUTH EVERY D AY TAKE ONE TABLET BY MOUTH EVERY DAY SOLD: 09/09/2020 [facility] Escitalopram 20 MG Oral Tablet ESCITALOPRAM OXALATE 08/26/2020 1 2:00:00 AM EST tablet 30 TAKE ONE TABLET BY MOUTH EVERY D AY TAKE ONE TABLET BY MOUTH EVERY DAY SOLD: 10/10/2020 [facility] 500 mg 08/05/2020 12:00:00 AM EST tablet extended release 24 hr 150 TAKE 2 TABLETS BY MOUTH EVERY MORNING AND 3 TABLETS AT BEDTIME TAKE 2 TABLETS BY MOUTH EVERY MORNING AND 3 TABLETS AT BEDTIME SOLD: 11/14/2020 [facility] 500 mg 08/05/2020 12:00:00 AM EST tablet extended release 24 hr 150 TAKE 2 TABLETS BY MOUTH EVERY MORNING AND 3 TABLETS AT BEDTIME TAKE 2 TABLETS BY MOUTH EVERY MORNING AND 3 TABLETS AT BEDTIME SOLD: 12/15/2020 [facility] 500 mg 08/05/2020 12:00:00 AM EST tablet extended release 24 hr 150 TAKE 2 TABLETS BY MOUTH EVERY MORNING AND 3 TABLETS AT BEDTIME TAKE 2 TABLETS BY MOUTH EVERY MORNING AND 3 TABLETS AT BEDTIME SOLD: 08/06/2020 [facility] 500 mg 08/05/2020 12:00:00 AM EST tablet extended release 24 hr 150 TAKE 2 TABLETS BY MOUTH EVERY MORNING AND 3 TABLETS AT BEDTIME TAKE 2 TABLETS BY MOUTH EVERY MORNING AND 3 TABLETS AT BEDTIME SOLD: 09/09/2020 [facility] 500 mg 08/05/2020 12:00:00 AM EST tablet extended release 24 hr 150 TAKE 2 TABLETS BY MOUTH EVERY MORNING AND 3 TABLETS AT BEDTIME TAKE 2 TABLETS BY MOUTH EVERY MORNING AND 3 TABLETS AT BEDTIME SOLD: 10/10/2020 [facility] 0.4 mg 07/29/2020 12:00:00 AM EST capsule 30 TAKE ONE CAPSULE BY MOUTH EVERY DAY TAKE ONE CAPSULE BY MOUTH EVERY DAY SOLD: 12/26/2020 [facility] 0.4 mg 07/29/2020 12:00:00 AM EST capsule 30 TAKE ONE CAPSULE BY MOUTH EVERY DAY TAKE ONE CAPSULE BY MOUTH EVERY DAY SOLD: 02/09/2021 [facility] 0.4 mg 07/29/2020 12:00:00 AM EST capsule 30 TAKE ONE CAPSULE BY MOUTH EVERY DAY TAKE ONE CAPSULE BY MOUTH EVERY DAY SOLD: 11/13/2020 [facility] 0.4 mg 07/29/2020 12:00:00 AM EST capsule 30 TAKE ONE CAPSULE BY MOUTH EVERY DAY TAKE ONE CAPSULE BY MOUTH EVERY DAY SOLD: 09/09/2020 [facility] 0.4 mg 07/29/2020 12:00:00 AM EST capsule 30 TAKE ONE CAPSULE BY MOUTH EVERY DAY TAKE ONE CAPSULE BY MOUTH EVERY DAY SOLD: 10/10/2020 [facility] 0.4 mg 07/29/2020 12:00:00 AM EST capsule 30 TAKE ONE CAPSULE BY MOUTH EVERY DAY TAKE ONE CAPSULE BY MOUTH EVERY DAY SOLD: 07/31/2020 [facility] 50 mcg (2,000 unit) 07/27/2020 12:00:00 AM EST tablet 30 TAKE ONE TABLET BY MOUTH ONCE A DAY TAKE ONE TABLET BY MOUTH ONCE A DAY SOLD: 07/31/2020 [facility] 50 mcg (2,000 unit) 07/27/2020 12:00:00 AM EST tablet 30 TAKE ONE TABLET BY MOUTH ONCE A DAY TAKE ONE TABLET BY MOUTH ONCE A DAY SOLD: 10/10/2020 [facility] 50 mcg (2,000 unit) 07/27/2020 12:00:00 AM EST tablet 30 TAKE ONE TABLET BY MOUTH ONCE A DAY TAKE ONE TABLET BY MOUTH ONCE A DAY SOLD: 11/13/2020 [facility] 50 mcg (2,000 unit) 07/27/2020 12:00:00 AM EST tablet 30 TAKE ONE TABLET BY MOUTH ONCE A DAY TAKE ONE TABLET BY MOUTH ONCE A DAY SOLD: 09/09/2020 [facility] 50 mcg (2,000 unit) 07/27/2020 12:00:00 AM EST tablet 30 TAKE ONE TABLET BY MOUTH ONCE A DAY TAKE ONE TABLET BY MOUTH ONCE A DAY SOLD: 12/26/2020 [facility] 50 mg 07/16/2020 12:00:00 AM EST tablet 9 TAKE 1 TABLET BY MOUTH AT ONSET OF MIGRAINE, MAY REPEAT AFTER 2 HOURS IF HEADACHE RETURNS, NOT TO EXCEED 2 TABLET IN 24 HOURS TAKE 1 TABLET BY MOUTH AT ONSET OF MIGRA INE, MAY REPEAT AFTER 2 HOURS IF HEADACHE RETURNS, NOT TO EXCEED 2 TABLET IN 24 HOURS SOLD: 07/25/2020 [facility] 50 mg 07/02/2020 12:00:00 AM EST tablet 60 TAKE ONE TABLET BY MOUTH TWICE A DAY TAKE ONE TABLET BY MOUTH TWICE A DAY SOLD: 03/31/2021 [facility] 50 mg 07/02/2020 12:00:00 AM EST tablet 60 TAKE ONE TABLET BY MOUTH TWICE A DAY TAKE ONE TABLET BY MOUTH TWICE A DAY SOLD: 10/10/2020 [facility] 50 mg 07/02/2020 12:00:00 AM EST tablet 60 TAKE ONE TABLET BY MOUTH TWICE A DAY TAKE ONE TABLET BY MOUTH TWICE A DAY SOLD: 07/31/2020 [facility] 50 mg 07/02/2020 12:00:00 AM EST tablet 60 TAKE ONE TABLET BY MOUTH TWICE A DAY TAKE ONE TABLET BY MOUTH TWICE A DAY SOLD: 02/19/2021 [facility] 50 mg 07/02/2020 12:00:00 AM EST tablet 60 TAKE ONE TABLET BY MOUTH TWICE A DAY TAKE ONE TABLET BY MOUTH TWICE A DAY SOLD: 07/14/2020 [facility] 50 mg 07/02/2020 12:00:00 AM EST tablet 60 TAKE ONE TABLET BY MOUTH TWICE A DAY TAKE ONE TABLET BY MOUTH TWICE A DAY SOLD: 09/09/2020 [facility] 50 mg 07/02/2020 12:00:00 AM EST tablet 60 TAKE ONE TABLET BY MOUTH TWICE A DAY TAKE ONE TABLET BY MOUTH TWICE A DAY SOLD: 11/14/2020 [facility] 500 mg 07/01/2020 12:00:00 AM EST tablet extended release 24 hr 150 TAKE 2 TABLETS BY MOUTH EVERY MORNING AND 3 TABLETS AT BEDTIME TAKE 2 TABLETS BY MOUTH EVERY MORNING AND 3 TABLETS AT BEDTIME SOLD: 07/02/2020 [facility] 200 mg 06/24/2020 12:00:00 AM EST tablet 60 TAKE ONE TABLET BY MOUTH TWICE A DAY TAKE ONE TABLET BY MOUTH TWICE A DAY SOLD: 11/13/2020 [facility] 200 mg 06/24/2020 12:00:00 AM EST tablet 60 TAKE ONE TABLET BY MOUTH TWICE A DAY TAKE ONE TABLET BY MOUTH TWICE A DAY SOLD: 12/15/2020 [facility] 200 mg 06/24/2020 12:00:00 AM EST tablet 60 TAKE ONE TABLET BY MOUTH TWICE A DAY TAKE ONE TABLET BY MOUTH TWICE A DAY SOLD: 07/02/2020 [facility] 200 mg 06/24/2020 12:00:00 AM EST tablet 60 TAKE ONE TABLET BY MOUTH TWICE A DAY TAKE ONE TABLET BY MOUTH TWICE A DAY SOLD: 09/09/2020 [facility] 200 mg 06/24/2020 12:00:00 AM EST tablet 60 TAKE ONE TABLET BY MOUTH TWICE A DAY TAKE ONE TABLET BY MOUTH TWICE A DAY SOLD: 10/10/2020 [facility] 200 mg 06/24/2020 12:00:00 AM EST tablet 60 TAKE ONE TABLET BY MOUTH TWICE A DAY TAKE ONE TABLET BY MOUTH TWICE A DAY SOLD: 07/31/2020 [facility] atorvastatin 20 MG Oral Tablet ATORVASTATIN CALCIUM 06/23/2020 1 2:00:00 AM EST tablet 30 TAKE ONE TABLET BY MOUTH EVERY D AY TAKE ONE TABLET BY MOUTH EVERY DAY SOLD: 11/13/2020 [facility] atorvastatin 20 MG Oral Tablet ATORVASTATIN CALCIUM 06/23/2020 1 2:00:00 AM EST tablet 30 TAKE ONE TABLET BY MOUTH EVERY D AY TAKE ONE TABLET BY MOUTH EVERY DAY SOLD: 09/09/2020 [facility] atorvastatin 20 MG Oral Tablet ATORVASTATIN CALCIUM 06/23/2020 1 2:00:00 AM EST tablet 30 TAKE ONE TABLET BY MOUTH EVERY D AY TAKE ONE TABLET BY MOUTH EVERY DAY SOLD: 07/02/2020 [facility] atorvastatin 20 MG Oral Tablet ATORVASTATIN CALCIUM 06/23/2020 1 2:00:00 AM EST tablet 30 TAKE ONE TABLET BY MOUTH EVERY D AY TAKE ONE TABLET BY MOUTH EVERY DAY SOLD: 10/10/2020 [facility] atorvastatin 20 MG Oral Tablet ATORVASTATIN CALCIUM 06/23/2020 1 2:00:00 AM EST tablet 30 TAKE ONE TABLET BY MOUTH EVERY D AY TAKE ONE TABLET BY MOUTH EVERY DAY SOLD: 07/31/2020 [facility] Escitalopram 20 MG Oral Tablet ESCITALOPRAM OXALATE 05/18/2020 1 2:00:00 AM EST tablet 30 TAKE ONE TABLET BY MOUTH ONCE DA TRACIE TAKE ONE TABLET BY MOUTH ONCE DAILY SOLD: 07/02/2020 [facility] Escitalopram 20 MG Oral Tablet ESCITALOPRAM OXALATE 05/18/2020 1 2:00:00 AM EST tablet 30 TAKE ONE TABLET BY MOUTH ONCE DA TRACIE TAKE ONE TABLET BY MOUTH ONCE DAILY SOLD: 05/28/2020 [facility] Escitalopram 20 MG Oral Tablet ESCITALOPRAM OXALATE 05/18/2020 1 2:00:00 AM EST tablet 30 TAKE ONE TABLET BY MOUTH ONCE DA TRCAIE TAKE ONE TABLET BY MOUTH ONCE DAILY SOLD: 07/31/2020 [facility] 2.5 mg 04/18/2020 12:00:00 AM EDT tablet 30 TAKE 1 TABLET BY MOUTH ONCE DAILY TAKE 1 TABLET BY MOUTH ONCE DAILY SOLD: 07/02/2020 [facility] 81 mg 04/18/2020 12:00:00 AM EDT tablet,chewable 30 CHEW 1 TABLET BY MOUTH ONCE DAILY CHEW 1 TABLET BY MOUTH ONCE DAILY SOLD: 10/10/2020 [facility] 5 mg 04/18/2020 12:00:00 AM EDT tablet 30 TAKE ONE TABLET BY MOUTH EVERY DAY TAKE ONE TABLET BY MOUTH EVERY DAY SOLD: 07/02/2020 [facility] 81 mg 04/18/2020 12:00:00 AM EDT tablet,chewable 30 CHEW 1 TABLET BY MOUTH ONCE DAILY CHEW 1 TABLET BY MOUTH ONCE DAILY SOLD: 07/31/2020 [facility] 81 mg 04/18/2020 12:00:00 AM EDT tablet,chewable 30 CHEW 1 TABLET BY MOUTH ONCE DAILY CHEW 1 TABLET BY MOUTH ONCE DAILY SOLD: 04/23/2020 [facility] 81 mg 04/18/2020 12:00:00 AM EDT tablet,chewable 30 CHEW 1 TABLET BY MOUTH ONCE DAILY CHEW 1 TABLET BY MOUTH ONCE DAILY SOLD: 05/28/2020 [facility] 5 mg 04/18/2020 12:00:00 AM EDT tablet 30 TAKE ONE TABLET BY MOUTH EVERY DAY TAKE ONE TABLET BY MOUTH EVERY DAY SOLD: 09/09/2020 [facility] 81 mg 04/18/2020 12:00:00 AM EDT tablet,chewable 30 CHEW 1 TABLET BY MOUTH ONCE DAILY CHEW 1 TABLET BY MOUTH ONCE DAILY SOLD: 09/09/2020 [facility] 2.5 mg 04/18/2020 12:00:00 AM EDT tablet 30 TAKE 1 TABLET BY MOUTH ONCE DAILY TAKE 1 TABLET BY MOUTH ONCE DAILY SOLD: 05/28/2020 [facility] 2.5 mg 04/18/2020 12:00:00 AM EDT tablet 30 TAKE 1 TABLET BY MOUTH ONCE DAILY TAKE 1 TABLET BY MOUTH ONCE DAILY SOLD: 09/09/2020 [facility] 81 mg 04/18/2020 12:00:00 AM EDT tablet,chewable 30 CHEW 1 TABLET BY MOUTH ONCE DAILY CHEW 1 TABLET BY MOUTH ONCE DAILY SOLD: 07/02/2020 [facility] 5 mg 04/18/2020 12:00:00 AM EDT tablet 30 TAKE ONE TABLET BY MOUTH EVERY DAY TAKE ONE TABLET BY MOUTH EVERY DAY SOLD: 10/10/2020 [facility] 5 mg 04/18/2020 12:00:00 AM EDT tablet 30 TAKE ONE TABLET BY MOUTH EVERY DAY TAKE ONE TABLET BY MOUTH EVERY DAY SOLD: 07/31/2020 [facility] 2.5 mg 04/18/2020 12:00:00 AM EDT tablet 30 TAKE 1 TABLET BY MOUTH ONCE DAILY TAKE 1 TABLET BY MOUTH ONCE DAILY SOLD: 04/23/2020 [facility] 2.5 mg 04/18/2020 12:00:00 AM EDT tablet 30 TAKE 1 TABLET BY MOUTH ONCE DAILY TAKE 1 TABLET BY MOUTH ONCE DAILY SOLD: 10/10/2020 [facility] 5 mg 04/18/2020 12:00:00 AM EDT tablet 30 TAKE ONE TABLET BY MOUTH EVERY DAY TAKE ONE TABLET BY MOUTH EVERY DAY SOLD: 04/23/2020 [facility] 2.5 mg 04/18/2020 12:00:00 AM EDT tablet 30 TAKE 1 TABLET BY MOUTH ONCE DAILY TAKE 1 TABLET BY MOUTH ONCE DAILY SOLD: 07/31/2020 [facility] 5 mg 04/18/2020 12:00:00 AM EDT tablet 30 TAKE ONE TABLET BY MOUTH EVERY DAY TAKE ONE TABLET BY MOUTH EVERY DAY SOLD: 05/28/2020 [facility] 50 mcg (2,000 unit) 01/10/2020 12:00:00 AM EDT tablet 30 TAKE ONE TABLET BY MOUTH EVERY DAY TAKE ONE TABLET BY MOUTH EVERY DAY SOLD: 05/28/2020 [facility] Escitalopram 20 MG Oral Tablet ESCITALOPRAM OXALATE 01/10/2020 1 2:00:00 AM EDT tablet 30 TAKE ONE TABLET BY MOUTH EVERY D AY TAKE ONE TABLET BY MOUTH EVERY DAY SOLD: 04/23/2020 [facility] 50 mcg (2,000 unit) 01/10/2020 12:00:00 AM EDT tablet 30 TAKE ONE TABLET BY MOUTH EVERY DAY TAKE ONE TABLET BY MOUTH EVERY DAY SOLD: 03/23/2020 [facility] Escitalopram 20 MG Oral Tablet ESCITALOPRAM OXALATE 01/10/2020 1 2:00:00 AM EDT tablet 30 TAKE ONE TABLET BY MOUTH EVERY D AY TAKE ONE TABLET BY MOUTH EVERY DAY SOLD: 03/23/2020 [facility] 50 mcg (2,000 unit) 01/10/2020 12:00:00 AM EDT tablet 30 TAKE ONE TABLET BY MOUTH EVERY DAY TAKE ONE TABLET BY MOUTH EVERY DAY SOLD: 07/02/2020 [facility] 50 mcg (2,000 unit) 01/10/2020 12:00:00 AM EDT tablet 30 TAKE ONE TABLET BY MOUTH EVERY DAY TAKE ONE TABLET BY MOUTH EVERY DAY SOLD: 04/23/2020 [facility] 200 mg 12/12/2019 12:00:00 AM EDT tablet 60 TAKE ONE TABLET BY MOUTH TWICE A DAY * MAXIMUM DAILY DOSE = 2 TAKE ONE TABLET BY MOUTH TWICE A DAY * M AXIMUM DAILY DOSE = 2 SOLD: 05/28/2020 [facility] 200 mg 12/12/2019 12:00:00 AM EDT tablet 60 TAKE ONE TABLET BY MOUTH TWICE A DAY * MAXIMUM DAILY DOSE = 2 TAKE ONE TABLET BY MOUTH TWICE A DAY * M AXIMUM DAILY DOSE = 2 SOLD: 03/23/2020 [facility] 200 mg 12/12/2019 12:00:00 AM EDT tablet 60 TAKE ONE TABLET BY MOUTH TWICE A DAY * MAXIMUM DAILY DOSE = 2 TAKE ONE TABLET BY MOUTH TWICE A DAY * M AXIMUM DAILY DOSE = 2 SOLD: 04/23/2020 [facility] 0.4 mg 12/11/2019 12:00:00 AM EDT capsule 30 TAKE ONE CAPSULE BY MOUTH EVERY DAY TAKE ONE CAPSULE BY MOUTH EVERY DAY SOLD: 07/02/2020 [facility] 0.4 mg 12/11/2019 12:00:00 AM EDT capsule 30 TAKE ONE CAPSULE BY MOUTH EVERY DAY TAKE ONE CAPSULE BY MOUTH EVERY DAY SOLD: 03/23/2020 [facility] 0.4 mg 12/11/2019 12:00:00 AM EDT capsule 30 TAKE ONE CAPSULE BY MOUTH EVERY DAY TAKE ONE CAPSULE BY MOUTH EVERY DAY SOLD: 04/23/2020 [facility] 0.4 mg 12/11/2019 12:00:00 AM EDT capsule 30 TAKE ONE CAPSULE BY MOUTH EVERY DAY TAKE ONE CAPSULE BY MOUTH EVERY DAY SOLD: 05/28/2020 [facility] atorvastatin 20 MG Oral Tablet ATORVASTATIN CALCIUM 12/10/2019 1 2:00:00 AM EDT tablet 30 TAKE ONE TABLET BY MOUTH EVERY D AY TAKE ONE TABLET BY MOUTH EVERY DAY SOLD: 04/23/2020 [facility] atorvastatin 20 MG Oral Tablet ATORVASTATIN CALCIUM 12/10/2019 1 2:00:00 AM EDT tablet 30 TAKE ONE TABLET BY MOUTH EVERY D AY TAKE ONE TABLET BY MOUTH EVERY DAY SOLD: 03/23/2020 [facility] atorvastatin 20 MG Oral Tablet ATORVASTATIN CALCIUM 12/10/2019 1 2:00:00 AM EDT tablet 30 TAKE ONE TABLET BY MOUTH EVERY D AY TAKE ONE TABLET BY MOUTH EVERY DAY SOLD: 05/28/2020 [facility] 81 mg 10/09/2019 12:00:00 AM EDT tablet,chewable 30 CHEW 1 TABLET BY MOUTH ONCE DAILY CHEW 1 TABLET BY MOUTH ONCE DAILY SOLD: 03/23/2020 [facility] 2.5 mg 10/09/2019 12:00:00 AM EDT tablet 30 TAKE 1 TABLET BY MOUTH ONCE DAILY TAKE 1 TABLET BY MOUTH ONCE DAILY SOLD: 03/23/2020 [facility] 5 mg 10/09/2019 12:00:00 AM EDT tablet 30 TAKE ONE TABLET BY MOUTH EVERY DAY TAKE ONE TABLET BY MOUTH EVERY DAY SOLD: 03/23/2020 [facility] 50 mg 09/04/2019 12:00:00 AM EST tablet 60 TAKE ONE TABLET BY MOUTH TWICE A DAY TAKE ONE TABLET BY MOUTH TWICE A DAY SOLD: 05/28/2020 [facility] 500 mg 08/10/2019 12:00:00 AM EST tablet extended release 24 hr 150 TAKE 2 TABLETS BY MOUTH EVERY MORNING AND 3 TABLETS AT BEDTIME TAKE 2 TABLETS BY MOUTH EVERY MORNING AND 3 TABLETS AT BEDTIME SOLD: 05/28/2020 [facility] 500 mg 08/10/2019 12:00:00 AM EST tablet extended release 24 hr 150 TAKE 2 TABLETS BY MOUTH EVERY MORNING AND 3 TABLETS AT BEDTIME TAKE 2 TABLETS BY MOUTH EVERY MORNING AND 3 TABLETS AT BEDTIME SOLD: 03/23/2020 [facility] 500 mg 08/10/2019 12:00:00 AM EST tablet extended release 24 hr 150 TAKE 2 TABLETS BY MOUTH EVERY MORNING AND 3 TABLETS AT BEDTIME TAKE 2 TABLETS BY MOUTH EVERY MORNING AND 3 TABLETS AT BEDTIME SOLD: 04/23/2020 [facility] Insurance Providers Payer name Policy type / Coverage type Policy ID Covered green party ID Covered green party's relationship to collazo Policy Collazo Plan Information Special Funds Workers Compensation [id number] Self [facility] Community Plan Commercial [id number] Self [facility] [id number] Self [id number] [facility] COMMUNITY PLAN [id number] SP [id number] [facility] I [id number] Self [id number] [facility] COMMUNITY PLAN [facility] [id number] SP [id number] ANSI-Medicaid [id number] ANSI-Medicaid [id number] ANSI-Medicaid [id number] ANSI-Medicaid [id number] ANSI-Medicaid [id number] ANSI-Medicaid [id number] ANSI-Medicaid [id number] ANSI-Medicaid [id number] [facility] [id number] Other Insurance 1 [id number] [facility] PLAN [id number] Comme ial Insurance [id number] ID IDENTIFICATION [id number] Other Insurance [id number] ANSI-Medicaid [id number] ANSI-Medicaid [id number] ANSI-Medicaid [id number] ANSI-Medicaid [id number] ANSI-Medicaid [id number] ANSI-Medicaid [id number] [facility] [id number] Comme rcial Insurance [id number] [facility] [id number] Comme rcial Insurance [id number] ID IDENTIFICATION [id number] Other Insurance [id number] [facility] O [id number] S [id number] [facility] COMMUNITY PLAN [id number] SP [id number] [facility] Commercial [id number] Self [employer] [id number] SP [id number] [facility] [id number] SP [id number] [facility] [id number] Self P UNAVAILABLE UNAVAILA BLE [facility] [id number] SP [id number] [employer] [place] [place] PL[employer] [id number] SP [id number] MEDICAID [id number] SP [id number] [facility] P [id number] S [id number] MEDICAID P [id number] S [id number] [facility] COMMUNITY [facility] [id number] SP [id number] [id number] [id number] [facility] COMMUNITY PLAN [facility] [id number] SP [id number] S[employer] WORK COMP [id number] SP [id number] [employer]W [id number] SP [id number] [facility] [id number] SP [id number] ANSI-Medicaid [id number] Problems, Conditions, and Diagnoses Code Display Name Description Problem Type Effective Dates Data Source(s) E66.01 [id number] Morbid (severe) obesity due to excess c alories Problem 01/16/2021 12:00:00 AM EDT eCW1 ([facility]) G47.33 [id number] Obstructive sleep apnea syndrome Problem 01/16/2021 12:00:00 AM EDT eCW1 ([facility]) Surgeries/Procedures No Information Results No Information Social History Code Duration Value Status Description Data Source(s ) Smoking 01/16/2021 12:00:00 AM EDT Former Smoker completed Former Smoker eCW1 ([facility]) Smoking 01/16/2021 12:00:00 AM EDT Former Smoker completed Former Smoker eCW1 ([facility]) Smoking 01/16/2021 12:00:00 AM EDT Former Smoker completed Former Smoker eCW1 ([facility]) Smoking 01/16/2021 12:00:00 AM EDT Former Smoker completed Former Smoker eCW1 ([facility]) Smoking 01/16/2021 12:00:00 AM EDT Former Smoker completed Former Smoker eCW1 ([facility]) Vital Signs ID Date Data Source UNK Name Value Range Interpretation Code Description Data Source(s) Body weight 277.8 [lb_av] 277.8 [lb_av] eCW1 ([facility]) Body height 71 [in_i] 71 [in_i] eCW1 ([facility]) Body mass index (BMI) [Ratio] 38.74 kg/m2 38.74 kg/m2 eCW1 ([facility]) Heart rate 81 /min 81 /min eCW1 ([facility]) Respiratory rate 18 /min 18 /min eCW1 ([facility]) Body temperature 97.8 [degF] 97.8 [degF] eCW1 ( [facility]) Systolic blood pressure 118 mm[Hg] 118 mm[Hg] e CW1 ([facility]) Diastolic blood pressure 72 mm[Hg] 72 mm[Hg] eCW1 ([facility])
[2021-05-17 15:42] LABS: ALBUMIN 3.1 GM/DL (3.2-5.2); ALT/SGPT 29 U/L (12-78); BILIRUBIN,DIRECT 0.3 MG/DL (0.0-0.2); BLOOD UREA NITROGEN 14 MG/DL (7-18); CALCIUM LEVEL 8.9 MG/DL (8.8-10.2); CARBON DIOXIDE LEVEL 29 MEQ/L (21-32); CHLORIDE LEVEL 97 MEQ/L (98-107); CK-MB VALUE MASS 2.6 NG/ML (<3.6); CPK CREATINE PHOSPHOKINASE 411 U/L (39-308); CREATININE FOR GFR 0.94 MG/DL (0.70-1.30); GLOMERULAR FILTRATION RATE > 60.0 (>49); GLUCOSE, FASTING 106 MG/DL (70-100); MB/CK RELATIVE INDEX 0.63 (< OR =4); NT-PRO BNP 221 PG/ML (<125); POTASSIUM SERUM 3.2 MEQ/L (3.5-5.1); SODIUM LEVEL 135 MEQ/L (136-145); TOTAL PROTEIN 7.9 GM/DL (6.4-8.2); TROPONIN I < 0.02 NG/ML (< 0.10)
[2021-05-17] MEDS ORDERED: POTASSIUM CHLORIDE 10MEQ SR TABLET PO ONE (15:50)
[2021-05-17] MEDS ORDERED: D31000TA2 PO (15:57)
[2021-05-17] MEDS ORDERED: LEXA1TAB2 PO (15:57)
[2021-05-17] MEDS ORDERED: TOPI50TA9 PO (15:57)
[2021-05-17] MEDS ORDERED: CALC500C16 PO (15:59)
[2021-05-17] MEDS ORDERED: VITMTA PO (15:59)
[2021-05-17] MEDS ORDERED: HOME MED LIST COMPLETE! XX SCH (16:05)
[2021-05-17] MEDS ORDERED: dexameTHASONE 20MG/5ML VIAL (J1100 PER 1MG) IV ONE (16:25)
--- NOTE | 2021-05-17 17:34 | HPEPDOC ---
General Date of Admission 05/17/21 Date of Service: May 17, 2021 Chief Complaint The patient is a 61-year-old male admitted with a reason for visit of Sob/Cold/Flu Symptoms. Source: Patient, RN/MD History of Present Illness 61-year-old male with a past medical history of morbid obesity BMI of 39.5, seizure disorder a presented to the emergency room with the shortness of breath for 1 week. On presentation to the ED he was noted to be tachypneic with an oxygen saturation of 82% on room air. Patient reported that he has been feeling sick 1 week ago. He was having cough, malaise, poor appetite, nausea mild shortness of breath especially when he was walking. 2 days ago he started feeling worse and started feeling more short of breath with increased cough and phlegm. He has been coughing all night and all day long and has not been able to get any sleep. In the ED he was found to be Covid positive and hypoxic. Chest x-ray showed bilateral infiltrates and peribronchial infiltrates. Patient was admitted for Covid pneumonia with hypoxic respiratory failure Home Medications Scheduled Amlodipine Besylate (Amlodipine Besylate) 5 Mg Tab, 5 MG PO DAILY, (Reported) Aspirin (Aspirin) 81 Mg Chw, 81 MG PO DAILY, (Reported) Atorvastatin Calcium (Atorvastatin Calcium) 20 Mg Tab, 20 MG PO DAILY, (Reported) Calcium Carbonate (Calcium) 500 Mg Tab.chew, 500 MG PO DAILY, (Reported) Cholecalciferol (Vitamin D3) (Vitamin D3) 1,000 Unit Tablet, 1,000 UNITS PO DAILY, (Reported) Escitalopram Oxalate (Lexapro) 20 Mg Tablet, 20 MG PO DAILY, (Reported) Lacosamide (Vimpat) 200 Mg Tab, 200 MG PO BID, (Reported) Levetiracetam (Keppra Xr) 500 Mg Tab, 1,000 MG PO QAM, (Reported) Levetiracetam (Keppra Xr) 500 Mg Tab, 1,500 MG PO QHS, (Reported) Minoxidil (Minoxidil) 2.5 Mg Tab, 2.5 MG PO DAILY, (Reported) Multivitamins (Thera M Plus Tablet) 1 Each Tablet, 1 TAB PO DAILY, (Reported) Tamsulosin Hcl (Tamsulosin HCl) 0.4 Mg Capsule, 0.4 MG PO DAILY, (Reported) Topiramate (Topiramate) 50 Mg Tablet, 50 MG PO DAILY, (Reported) Allergies Coded Allergies: sulfamethoxazole (Verified Allergy, Mild, HIVES, 05/17/21) trimethoprim (Verified Allergy, Mild, HIVES, 05/17/21) Past Medical History Medical History Traumatic brain injury s/p fall from roof in 1997 status post craniotomy has a plate on the right side 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 Anxiety Hypertension 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 Hyperlipidemia BPH History of testicular abscess Cyst removed from left middle finger Family History Father , had cancer Mother alive at 91 no medical problems Social History * Smoker: non-smoker Alcohol: Denies Drugs: denies A-FIB/CHADSVASC A-FIB History Current/History of A-Fib/PAF?: No Review of Systems Constitutional: Reports: Malaise, Fatigue Eyes: Reports: Other (Blindness in right eye); Denies: Pain, Vision change ENT: Reports: Epistaxis, Other Symptoms; Denies: Head Aches, Ear Pain, Dysphagia, Sinus Congestion, Post Nasal Drip, Sore Throat Skin: Denies: Rash, Lesions, Breakdown Pulmonary: Reports: Dyspnea, Cough Cardiovascular: Denies: Chest Pain, Palpitations, Orthopnea, Paroxysmal Noc. Dyspnea Gastrointestinal: Reports: Nausea; Denies: Vomiting, Abdominal Pain, Diarrhea Genitourinary: Denies: Dysuria, Frequency, Incontinence, Retention Hematologic: Denies: Bruising, Bleeding Excessively Musculoskeletal: Reports: Back Pain; Denies: Neck Pain, Joint Pain, Muscle Pain, Spasms Psych: Reports: Anxiety Physical Examination General Exam: Positive: Alert, Cooperative, No Acute Distress ENT Exam: Positive: Atraumatic, Mucous membr. moist/pink, Pharynx Normal Neck Exam: Positive: Supple; Negative: JVD, thyromegaly Chest Exam: Positive: Normal air movement, Diminished, Other (Bilateral basal crackles) Heart Exam: Positive: Rate Normal, Regular Rhythm, Normal S1, Normal S2; Negative: Murmurs, Rubs Abdomen Exam: Positive: Normal bowel sounds, Soft, Hepatospenomegaly; Negative: Tenderness Extremity Exam: Negative: Clubbing, Cyanosis, Edema Skin Exam: Positive: Nl turgor and temperature; Negative: Breakdown, Lesion Neuro Exam: Positive: Normal Speech, Strength at 5/5 X4 ext, Normal Tone Psych Exam: Positive: Oriented x 3 Vital Signs Vital Signs Date Time Temp Pulse Resp B/P (MAP) Pulse Ox O2 Delivery O2 Flow Rate FiO2 05/17/21 15:30 79 22 123/63 (83) 96 Nasal Cannula 4.0 05/17/21 14:32 97.4 Laboratory Data Labs 24H Laboratory Tests 2 05/17/21 14:56: 05/17/21 14:57: Immature Granulocyte % (Auto) 0.4, Neutrophils (%) (Auto) 81.5H, Lymphocytes (%) (Auto) 12.6L, Monocytes (%) (Auto) 5.3, Eosinophils (%) (Auto) 0.1, Basophils (%) (Auto) 0.1, Neutrophils # (Auto) 6.2, Lymphocytes # (Auto) 1.0L, Monocytes # (Auto) 0.4, Eosinophils # (Auto) 0.0, Basophils # (Auto) 0.0, Nucleated Red Blood Cells % (auto) 0.0, Anion Gap 9, Glomerular Filtration Rate > 60.0, Lactic Acid Level 1.8, Calcium Level 8.9, Total Bilirubin 1.0, Direct Bilirubin 0.3H, Aspartate Amino Transf (AST/SGOT) 39H, Alanine Aminotransferase (ALT/SGPT) 29, Alkaline Phosphatase 45, Total Creatine Kinase 411H, Creatine Kinase MB 2.6, Creatine Kinase MB Relative Index 0.63, Troponin I < 0.02, KD-Wvs-C-Type Natriuretic Peptide 221H, Total Protein 7.9, Albumin 3.1L, Albumin/Globulin Ratio 0.6 CBC/BMP Laboratory Tests 05/17/21 14:57 Microbiology Microbiology 05/17/21 Blood Culture, Received Pending 05/17/21 Respiratory Virus Panel (PCR) ([facility]) - Final, Complete SARS-CoV-2 (COVID 19) 05/17/21 Blood Culture, Received Pending Assessment/Plan 61-year-old male with a past medical history of morbid obesity BMI of 39.5, seizure disorder a presented to the emergency room with the shortness of breath for 1 week. On presentation to the ED he was noted to be tachypneic with an oxygen saturation of 82% on room air. Patient reported that he has been feeling sick 1 week ago. He was having cough, malaise, poor appetite, nausea mild shortness of breath especially when he was walking. 2 days ago he started feeling worse and started feeling more short of breath with increased cough and phlegm. He has been coughing all night and all day long and has not been able to get any sleep. In the ED he was found to be Covid positive and hypoxic. Chest x-ray showed bilateral infiltrates and peribronchial infiltrates. Patient was admitted for Covid pneumonia with hypoxic respiratory failure Covid pneumonia with acute hypoxic respiratory failure Dexamethasone, remdesivir, aspirin Lovenox for DVT prophylaxis Albuterol as needed Hypertension Continue only amlodipine for BPH Continue flomax Morbid obesity With possible underlying sleep apnea. Patient has been referred for a sleep study by his PMD. Traumatic brain injury/seizure Continue levetiracetam, topiramate, Vimpat Hyperlipidemia We will hold statin at present Anxiety/depression Lexapro GI prophylaxis PPI Plan / VTE VTE Prophylaxis Ordered?: Yes Sofya Garcia MD May 17, 2021 16:58
[2021-05-17] MEDS ORDERED: ONDANSETRON 4MG/2ML VIAL IV PRN (17:35)
--- OUTSIDE RECORDS SUMMARY | 2021-05-17 17:40 | CCD ---
Author Author [facility] Organization [facility] Address Unknown Phone Unavailable Support Name Relationship Address Phone JOSÉ MEDARDO Next Of Kin [address] [place] [address] NA, NA Next Of Kin Unknown Unavailable LITTLE RHODES Next Of Kin [address] [place] [address] [place] Next Of Kin Unknown Unavailable JOSÉ BENJI Next Of Kin [facility] [place] [address] UE Next Of Kin Unknown Unavailable UNEMPLOYED Next Of Kin - -, - - ANITA KUMAR Next Of Kin [facility] [place] [address] Niranjan Kumar [address] [place] [address] Unavailable Re-disclosure Warning The records that you [...] is protected by Article 27-F of the [facility] Public Health law. If you continue you may have access to information: Regarding HIV / AIDS; Provided by facilities licensed or operated by the [facility] Office of Mental Health; or Provided by the [facility] Office for People With Developmental Disabilities. If such information is present, then the following [facility] mandated warning applies: This information has been [...] law may result in a fine or mcc sentence or both. A general authorization for the release of medical or other information is NOT sufficient authorization for further disc losure. Family History Family Member Name Family Member Gender Family Member Status Date o f Status Description Data Source(s) Unknown Male Problem [facility] ([facility]) Encounters Encounter Providers Location Date Indications Data Source(s ) Unknown [address] [facility] [id number] 03/11/2021 12:00:00 AM EDT eCW1 ([facility]) Unknown [address] [facility] [address] [address] 01/29/2021 12:00:00 AM EDT [facility] Outpatient [address] [facility] [address] [place] [address] 01/16/2021 12:00:00 AM EDT eCW1 ([facility]) Unknown [address] [facility] [address] [address] 01/16/2021 12:00:00 AM EDT eCW1 ([facility]) Unknown [address] [facility] [address] [address] 01/15/2021 12:00:00 AM EDT eCW1 ([facility]) Unknown [address] [facility] [address] [address] 01/09/2021 12:00:00 AM EDT eCW1 ([facility]) Unknown [address] [facility] [address] [address] 12/19/2020 12:00:00 AM EDT eCW1 ([facility]) Medications Medication Brand Name Start Date Product [...] TABLET BY MOUTH EVERY DAY SOLD: 04/24/2021 [facility] 5 mg 11/06/2020 12:00:00 AM EDT [...] Collazo Plan Information Special Funds Workers Compensation [id number] Self [facility] Community Plan Commercial [id number] Self [facility] [id number] Self [id number] [facility] COMMUNITY PLAN [id number] SP 1 [id number] [facility] I [id number] Self [id number] [facility] COMMUNITY PLAN [facility] [id number] SP [id number] ANSI-Medicaid [id number] ANSI-Medicaid [id number] ANSI-Medicaid [id number] ANSI-Medicaid [id number] ANSI-Medicaid [id number] ANSI-Medicaid [id number] ANSI-Medicaid [id number] ANSI-Medicaid [id number] [facility] [id number] Other Insurance 1 [id number] [facility] PLAN [id number] Comme ial Insurance [id number] ID IDENTIFICATION [id number] Other Insurance [id number] ANSI-Medicaid [id number] ANSI-Medicaid [id number] ANSI-Medicaid [id number] ANSI-Medicaid [id number] ANSI-Medicaid [id number] ANSI-Medicaid [id number] [facility] [id number] Comme rcial Insurance [id number] [facility] [id number] Comme rcial Insurance [id number] ID IDENTIFICATION [id number] Other Insurance [id number] [facility] O [id number] S [id number] [facility] COMMUNITY PLAN [id number] SP [id number] [facility] Commercial [id number] Self [employer]W [id number] SP [id number] [facility] [id number] SP [id number] [facility] [id number] Self P UNAVAILABLE UNAVAILA BLE [facility] COMMUNITY PLAN [facility] [id number] SP [id number] [employer] [place] PLAN [id number] SP [id number] MEDICAID [id number] SP [id number] ONE CALL MEDICAL P [id number] S [id number] MEDICAID P [id number] S [id number] [facility] COMMUNITY PLAN [facility] [id number] SP [id number] [id number] WCB#[id number] [facility] COMMUNITY PLAN [facility] [id number] SP [id number] [employer] WORK COMP [id number] SP [id number] SPECIAL FUNDS CONSERVATION-DEW [id number] SP [id number] [facility] [id number] SP [id number] ANSI-Medicaid [id number] Problems, Conditions, and Diagnoses Code Display Name Description Problem Type Effective Dates Data Source(s) E66.01 [id number] Morbid (severe) obesity due to excess c alories Problem 01/16/2021 12:00:00 AM EDT eCW1 ([facility]) G47.33 [id number] Obstructive sleep apnea syndrome Problem 01/16/2021 12:00:00 AM EDT eCW1 ([facility]) Surgeries/Procedures No Information Results No Information Social History Code Duration Value Status Description Data Source(s ) Smoking 01/16/2021 12:00:00 AM EDT Former Smoker completed Former Smoker eCW1 ([facility]) Smoking 01/16/2021 12:00:00 AM EDT Former Smoker completed Former Smoker eCW1 ([facility]) Smoking 01/16/2021 12:00:00 AM EDT Former Smoker completed Former Smoker eCW1 ([facility]) Smoking 01/16/2021 12:00:00 AM EDT Former Smoker completed Former Smoker eCW1 ([facility]) Smoking 01/16/2021 12:00:00 AM EDT Former Smoker completed Former Smoker eCW1 ([facility]) Vital Signs ID Date Data Source UNK Name Value Range Interpretation Code Description Data Source(s) Body weight 277.8 [lb_av] 277.8 [lb_av] eCW1 ([facility]) Body height 71 [in_i] 71 [in_i] eCW1 ([facility]) Body mass index (BMI) [Ratio] 38.74 kg/m2 38.74 kg/m2 eCW1 ([facility]) Heart rate 81 /min 81 /min eCW1 ([facility]) Respiratory rate 18 /min 18 /min eCW1 ([facility]) Body temperature 97.8 [degF] 97.8 [degF] eCW1 ( [facility]) Systolic blood pressure 118 mm[Hg] 118 mm[Hg] e CW1 ([facility]) Diastolic blood pressure 72 mm[Hg] 72 mm[Hg] eCW1 ([facility])
[2021-05-17] MEDS: amLODIPine 5 MG TAB PO SCH (17:59)
[2021-05-17 18:15] LABS: LDH LACTATE DEHYDROGENASE 595 U/L (87-241)
[2021-05-17 18:23] LABS: INR 1.09; PROTHROMBIN TIME 14.5 SECONDS (12.7-14.5)
[2021-05-17 18:35] LABS: D-DIMER QUANT 1500.76 ng/ml (<500)
[2021-05-17] MEDS: PANTOPRAZOLE 40MG TAB (PROTONIX) PO SCH (18:43)
[2021-05-17] MEDS: ASPIRIN 81MG ENTERIC TABLET PO SCH (18:43)
[2021-05-17] MEDS ORDERED: REMDESIVIR 200 MG in NS 250 ML IV ONE (20:00)
--- NOTE | 2021-05-17 20:15 | ECGEPIP ---
[facility] - ED Test Date: 2021-05-17 Pat Name: NII MEAGAN Department: Room: - Gender: Male [employer] Specialist: LEYDI : 1960 Requested By: NII Alexander Order Number: [id number] Reading MD: Nii Guajardo Measurements Intervals [place] Rate: 81 P: 38 ME: 162 QRS: 39 QRSD: 86 T: 57 QT: 406 QTc: 471 Interpretive Statements Normal sinus rhythm Similar to tracing done 05-23-19 Electronically Signed on 05-17-2021 20:15:08 EST by Nii Guajardo
[2021-05-17] MEDS ORDERED: SODIUM CHLORIDE 0.9% INJ 10 ML SYR IV ONE (22:00)
[2021-05-17] MEDS: levETIRAcetam **XR** 500 MG TABLET PO SCH (22:12)
[2021-05-17] MEDS: ENOXAPARIN 40MG/0.4ML SYRINGE (J1650 PER 10MG) SC SCH (22:13)
[2021-05-17] MEDS: LACOSAMIDE 50 MG TAB (VIMPAT) PO SCH (22:13)
[2021-05-18] VITALS (11 sets, daily range): BP systolic 108–131; BP diastolic 59–70; O2SAT 91–96
[2021-05-18 07:17] LABS: BASO % 0.2 % (0.0-1.0); HEMATOCRIT 39.8 % (42.0-52.0); HEMOGLOBIN 13.7 g/dl (13.5-17.5); LYMPH # 0.6 10^3/uL (1.5-5.0); MEAN CORPUSCULAR HEMOGLOBIN 32.9 pg (27.0-33.0); MEAN CORPUSCULAR HGB CONC 34.4 g/dl (32.0-36.5); MEAN CORPUSCULAR VOLUME 95.4 fl (80.0-96.0); MONO # 0.4 10^3/uL (0.0-0.8); MONO % 7.9 % (2.0-8.0); NEUTROPHILS # 3.5 10^3/uL (1.5-8.5); NEUTROPHILS % 78.5 % (36.0-66.0); PLATELET COUNT, AUTOMATED 181 10^3/uL (150-450); RED BLOOD COUNT 4.17 10^6/uL (4.30-6.10); WHITE BLOOD COUNT 4.5 10^3/uL (4.0-10.0)
[2021-05-18 07:47] LABS: BLOOD UREA NITROGEN 16 MG/DL (7-18); CARBON DIOXIDE LEVEL 31 MEQ/L (21-32); CHLORIDE LEVEL 105 MEQ/L (98-107); CREATININE FOR GFR 0.74 MG/DL (0.70-1.30); GLOMERULAR FILTRATION RATE > 60.0 (>49); GLUCOSE, FASTING 116 MG/DL (70-100); POTASSIUM SERUM 4.3 MEQ/L (3.5-5.1); SODIUM LEVEL 140 MEQ/L (136-145)
[2021-05-18 07:48] LABS: ALBUMIN 2.5 GM/DL (3.2-5.2); ALT/SGPT 30 U/L (12-78); BILIRUBIN,DIRECT 0.2 MG/DL (0.0-0.2); BILIRUBIN,TOTAL 0.6 MG/DL (0.2-1.0); CALCIUM LEVEL 8.9 MG/DL (8.8-10.2); MAGNESIUM LEVEL 2.7 MG/DL (1.8-2.4); TOTAL PROTEIN 7.4 GM/DL (6.4-8.2)
[2021-05-18] MEDS: TOPIRAMATE (TopAMAX) 25 MG TAB PO SCH (08:46)
[2021-05-18] MEDS: LACOSAMIDE 50 MG TAB (VIMPAT) PO SCH ×2 (08:46→21:39)
[2021-05-18] MEDS: levETIRAcetam **XR** 500 MG TABLET PO SCH ×2 (08:46→21:38)
[2021-05-18] MEDS: ESCITALOPRAM OXALATE 10 MG TAB (LEXAPRO) PO SCH (08:47)
[2021-05-18] MEDS: ASPIRIN 81MG ENTERIC TABLET PO SCH (08:47)
[2021-05-18] MEDS: PANTOPRAZOLE 40MG TAB (PROTONIX) PO SCH (08:47)
[2021-05-18] MEDS: TAMSULOSIN 0.4 MG CAP PO SCH (08:47)
[2021-05-18] MEDS: amLODIPine 5 MG TAB PO SCH (08:48)
[2021-05-18] MEDS ORDERED: dexameTHASONE 4 MG/ML 1ML VIAL (J1100 PER 1MG) IV SCH (09:00)
--- NOTE | 2021-05-18 09:27 | IPNPDOC ---
Subjective Date Seen The patient was seen on 05/18/21. Subjective Chief Complaint/HPI No issues overnight. Maintaining oxygenation with 4 L of oxygen. Encouraged to prone. Reports that his cough is better. And his appetite is improving. Objective Physical Examination General Exam: Positive: Alert, Cooperative, No Acute Distress ENT Exam: Positive: Atraumatic, Mucous membr. moist/pink, Pharynx Normal Neck Exam: Positive: Supple; Negative: JVD, thyromegaly Chest Exam: Positive: Normal air movement, Diminished, Other (Bilateral basal crackles) Heart Exam: Positive: Rate Normal, Regular Rhythm, Normal S1, Normal S2; Negative: Murmurs, Rubs Abdomen Exam: Positive: Normal bowel sounds, Soft, Hepatospenomegaly; Negative: Tenderness Extremity Exam: Negative: Clubbing, Cyanosis, Edema Skin Exam: Positive: Nl turgor and temperature; Negative: Breakdown, Lesion Neuro Exam: Positive: Normal Speech, Strength at 5/5 X4 ext, Normal Tone Psych Exam: Positive: Oriented x 3 Assessment /Plan Assessment 61-year-old male with a past medical history of morbid obesity BMI of 39.5, seizure disorder a presented to the emergency room with the shortness of breath for 1 week. On presentation to the ED he was noted to be tachypneic with an oxygen saturation of 82% on room air. Patient reported that he has been feeling sick 1 week ago. He was having cough, malaise, poor appetite, nausea mild shortness of breath especially when he was walking. 2 days ago he started feeling worse and started feeling more short of breath with increased cough and phlegm. He has been coughing all night and all day long and has not been able to get any sleep. In the ED he was found to be Covid positive and hypoxic. Chest x-ray showed bilateral infiltrates and peribronchial infiltrates. Patient was admitted for Covid pneumonia with hypoxic respiratory failure Covid pneumonia with acute hypoxic respiratory failure Dexamethasone, remdesivir, aspirin Lovenox for DVT prophylaxis Albuterol as needed Hypertension Continue only amlodipine BPH Continue flomax Morbid obesity With possible underlying sleep apnea. Patient has been referred for a sleep study by his PMD. Traumatic brain injury/seizure Continue levetiracetam, topiramate, Vimpat Hyperlipidemia We will hold statin at present Anxiety/depression Lexapro GI prophylaxis PPI Plan/VTE VTE Prophylaxis Ordered?: Yes VS, I&O, 24H, Samantha Vital Signs/I&O Vital Signs Date Time Temp Pulse Resp B/P (MAP) Pulse Ox O2 Delivery O2 Flow Rate FiO2 05/18/21 08:48 58 120/67 05/18/21 08:36 97.8 19 93 Nasal Cannula 4.0 I&O- Last 24 Hours up to 6 AM 05/18/21 06:00 Intake Total 320 ml Balance 320 ml Laboratory Data 24H LABS Laboratory Tests 2 05/17/21 14:55: 05/17/21 14:56: 05/17/21 14:57: Immature Granulocyte % (Auto) 0.4, Neutrophils (%) (Auto) 81.5H, Lymphocytes (%) (Auto) 12.6L, Monocytes (%) (Auto) 5.3, Eosinophils (%) (Auto) 0.1, Basophils (%) (Auto) 0.1, Neutrophils # (Auto) 6.2, Lymphocytes # (Auto) 1.0L, Monocytes # (Auto) 0.4, Eosinophils # (Auto) 0.0, Basophils # (Auto) 0.0, Nucleated Red Blood Cells % (auto) 0.0, Anion Gap 9, Glomerular Filtration Rate > 60.0, Lactic Acid Level 1.8, Calcium Level 8.9, Total Bilirubin 1.0, Direct Bilirubin 0.3H, Aspartate Amino Transf (AST/SGOT) 39H, Alanine Aminotransferase (ALT/SGPT) 29, Alkaline Phosphatase 45, Lactate Dehydrogenase 595H, Total Creatine Kinase 411H, Creatine Kinase MB 2.6, Creatine Kinase MB Relative Index 0.63, Troponin I < 0.02, [id number]-Type Natriuretic Peptide 221H, Total Protein 7.9, Albumin 3.1L, Albumin/Globulin Ratio 0.6 05/17/21 18:00: Troponin I < 0.02, Prothrombin Time 14.5H, Prothromb Time International Ratio 1.09, Activated Partial Thromboplast Time 31.0, Fibrinogen 798H, D-Dimer, Quantitative 1500.76H, Ferritin 792H 05/18/21 06:47: Immature Granulocyte % (Auto) 0.4, Neutrophils (%) (Auto) 78.5H, Lymphocytes (%) (Auto) 13.0L, Monocytes (%) (Auto) 7.9, Eosinophils (%) (Auto) 0.0, Basophils (%) (Auto) 0.2, Neutrophils # (Auto) 3.5, Lymphocytes # (Auto) 0.6L, Monocytes # (Auto) 0.4, Eosinophils # (Auto) 0.0, Basophils # (Auto) 0.0, Nucleated Red Blood Cells % (auto) 0.0, Anion Gap 4L, Glomerular Filtration Rate > 60.0, Calcium Level 8.9, Magnesium Level 2.7H, Total Bilirubin 0.6, Direct Bilirubin 0.2, Aspartate Amino Transf (AST/SGOT) 27, Alanine Aminotransferase (ALT/SGPT) 30, Alkaline Phosphatase 40L, Total Protein 7.4, Albumin 2.5L, Albumin/Globulin Ratio 0.5 CBC/BMP Laboratory Tests 05/17/21 14:57 05/18/21 06:47 Microbiology Microbiology 05/17/21 Blood Culture, Received Pending 05/17/21 Respiratory Virus Panel (PCR) ([facility]) - Final, Complete SARS-CoV-2 (COVID 19) 05/17/21 Blood Culture, Received Pending Sofya Garcia MD May 18, 2021 09:27
[2021-05-18] MEDS: REMDESIVIR 100 MG in NS 250 ML IV SCH (17:57)
[2021-05-18] MEDS: SODIUM CHLORIDE 0.9% INJ 10 ML SYR IV SCH (19:04)
[2021-05-18] MEDS: ENOXAPARIN 40MG/0.4ML SYRINGE (J1650 PER 10MG) SC SCH (21:38)
[2021-05-19] VITALS (7 sets, daily range): BP systolic 108–118; BP diastolic 60–68; O2SAT 93
[2021-05-19 08:12] LABS: BASO % 0.1 % (0.0-1.0); HEMATOCRIT 39.2 % (42.0-52.0); HEMOGLOBIN 13.2 g/dl (13.5-17.5); LYMPH # 0.7 10^3/uL (1.5-5.0); LYMPH % 8.1 % (24.0-44.0); MEAN CORPUSCULAR HEMOGLOBIN 31.9 pg (27.0-33.0); MEAN CORPUSCULAR HGB CONC 33.7 g/dl (32.0-36.5); MEAN CORPUSCULAR VOLUME 94.7 fl (80.0-96.0); MONO # 0.5 10^3/uL (0.0-0.8); MONO % 5.7 % (2.0-8.0); NEUTROPHILS # 7.4 10^3/uL (1.5-8.5); NEUTROPHILS % 85.3 % (36.0-66.0); PLATELET COUNT, AUTOMATED 227 10^3/uL (150-450); RED BLOOD COUNT 4.14 10^6/uL (4.30-6.10); WHITE BLOOD COUNT 8.6 10^3/uL (4.0-10.0)
[2021-05-19 08:26] LABS: CPK CREATINE PHOSPHOKINASE 113 U/L (39-308); TROPONIN I < 0.02 NG/ML (< 0.10)
[2021-05-19 08:36] LABS: INR 1.15; PARTIAL THROMBOPLASTIN TIME 31.4 SECONDS (25.9-37.0); PROTHROMBIN TIME 15.1 SECONDS (12.7-14.5)
[2021-05-19 08:40] LABS: ALBUMIN 2.6 GM/DL (3.2-5.2); ALT/SGPT 32 U/L (12-78); BILIRUBIN,DIRECT 0.2 MG/DL (0.0-0.2); BILIRUBIN,TOTAL 0.6 MG/DL (0.2-1.0); BLOOD UREA NITROGEN 24 MG/DL (7-18); CALCIUM LEVEL 8.5 MG/DL (8.8-10.2); CARBON DIOXIDE LEVEL 30 MEQ/L (21-32); CHLORIDE LEVEL 105 MEQ/L (98-107); CREATININE FOR GFR 0.77 MG/DL (0.70-1.30); FERRITIN 991 NG/ML (26-388); GLOMERULAR FILTRATION RATE > 60.0 (>49); GLUCOSE, FASTING 96 MG/DL (70-100); LDH LACTATE DEHYDROGENASE 401 U/L (87-241); MAGNESIUM LEVEL 2.6 MG/DL (1.8-2.4); NT-PRO BNP 159 PG/ML (<125); POTASSIUM SERUM 3.9 MEQ/L (3.5-5.1); SODIUM LEVEL 141 MEQ/L (136-145); TOTAL PROTEIN 6.5 GM/DL (6.4-8.2)
[2021-05-19] MEDS: amLODIPine 5 MG TAB PO SCH ×2 (10:00→10:40)
[2021-05-19] MEDS: levETIRAcetam **XR** 500 MG TABLET PO SCH ×2 (10:39→23:14)
[2021-05-19] MEDS: BARICITINIB 2MG TABLET (OLUMIANT) FOR EUA PO SCH (10:39)
[2021-05-19] MEDS: LACOSAMIDE 50 MG TAB (VIMPAT) PO SCH ×2 (10:39→23:13)
[2021-05-19] MEDS: ASPIRIN 81MG ENTERIC TABLET PO SCH (10:39)
[2021-05-19] MEDS: PANTOPRAZOLE 40MG TAB (PROTONIX) PO SCH ×2 (10:39→23:13)
[2021-05-19] MEDS: TOPIRAMATE (TopAMAX) 25 MG TAB PO SCH (10:40)
[2021-05-19] MEDS: ESCITALOPRAM OXALATE 10 MG TAB (LEXAPRO) PO SCH (10:40)
[2021-05-19] MEDS: TAMSULOSIN 0.4 MG CAP PO SCH (10:41)
[2021-05-19] MEDS: dexameTHASONE 20MG/5ML VIAL (J1100 PER 1MG) IV SCH ×2 (10:41→23:12)
--- NOTE | 2021-05-19 14:03 | IPNPDOC ---
Subjective Date Seen The patient was seen on 05/19/21. Subjective Chief Complaint/HPI Patient's shortness of breath increased overnight and his oxygenation has worsened overnight and currently he is on Vapotherm 25 L/ 100% he has been encouraged to prone as much as possible. Continues to have coughing and is able to bring up some phlegm. No abdominal pain or diarrhea or nausea or vomiting. Objective Physical Examination General Exam: Positive: Alert, Cooperative, No Acute Distress ENT Exam: Positive: Atraumatic, Mucous membr. moist/pink, Pharynx Normal Neck Exam: Positive: Supple; Negative: JVD, thyromegaly Chest Exam: Positive: Normal air movement, Diminished, Other (Bilateral diffuse crackles) Heart Exam: Positive: Rate Normal, Regular Rhythm, Normal S1, Normal S2; Negative: Murmurs, Rubs Abdomen Exam: Positive: Normal bowel sounds, Soft, Hepatospenomegaly; Negative: Tenderness Extremity Exam: Negative: Clubbing, Cyanosis, Edema Skin Exam: Positive: Nl turgor and temperature; Negative: Breakdown, Lesion Neuro Exam: Positive: Normal Speech, Strength at 5/5 X4 ext, Normal Tone Psych Exam: Positive: Oriented x 3 Assessment /Plan Assessment 61-year-old male with a past medical history of morbid obesity BMI of 39.5, seizure disorder a presented to the emergency room with the shortness of breath for 1 week. On presentation to the ED he was noted to be tachypneic with an oxygen saturation of 82% on room air. Patient reported that he has been feeling sick 1 week ago. He was having cough, malaise, poor appetite, nausea mild shortness of breath especially when he was walking. 2 days ago he started feeling worse and started feeling more short of breath with increased cough and phlegm. He has been coughing all night and all day long and has not been able to get any sleep. In the ED he was found to be Covid positive and hypoxic. Chest x-ray showed bilateral infiltrates and peribronchial infiltrates. Patient was admitted for Covid pneumonia with hypoxic respiratory failure. Patient's oxygenation worsened overnight and currently needing Vapotherm. Covid pneumonia with acute hypoxic respiratory failure Dexamethasone, remdesivir, aspirin start on Olumiant. Lovenox for DVT prophylaxis Albuterol as needed Hypertension Continue only amlodipine BPH Continue flomax Morbid obesity With possible underlying sleep apnea. Patient has been referred for a sleep study by his PMD. Traumatic brain injury/seizure Continue levetiracetam, topiramate, Vimpat Hyperlipidemia We will hold statin at present Anxiety/depression Lexapro GI prophylaxis PPI Plan/VTE VTE Prophylaxis Ordered?: Yes VS, I&O, 24H, Fishbone Vital Signs/I&O Vital Signs Date Time Temp Pulse Resp B/P (MAP) Pulse Ox O2 Delivery O2 Flow Rate FiO2 05/19/21 10:42 97.0 70 20 108/64 (79) 94 HVNI-Vapotherm 25.0 100 I&O- Last 24 Hours up to 6 AM 05/19/21 06:00 Intake Total 840 ml Output Total 1975 ml Balance -1135 ml Laboratory Data 24H LABS Laboratory Tests 2 05/19/21 07:24: Immature Granulocyte % (Auto) 0.8, Neutrophils (%) (Auto) 85.3H, Lymphocytes (%) (Auto) 8.1L, Monocytes (%) (Auto) 5.7, Eosinophils (%) (Auto) 0.0, Basophils (%) (Auto) 0.1, Neutrophils # (Auto) 7.4, Lymphocytes # (Auto) 0.7L, Monocytes # (Auto) 0.5, Eosinophils # (Auto) 0.0, Basophils # (Auto) 0.0, Nucleated Red Blood Cells % (auto) 0.0, Prothrombin Time 15.1H, Prothromb Time International Ratio 1.15, Activated Partial Thromboplast Time 31.4, Fibrinogen 599H, Anion Gap 6L, Glomerular Filtration Rate > 60.0, Calcium Level 8.5L, Magnesium Level 2.6H, Ferritin 991H, Total Bilirubin 0.6, Direct Bilirubin 0.2, Aspartate Amino Transf (AST/SGOT) 25, Alanine Aminotransferase (ALT/SGPT) 32, Alkaline Phosphatase 39L, Lactate Dehydrogenase 401H, Total Creatine Kinase 113, Troponin I < 0.02, KD-[id number]-Type Natriuretic Peptide 159H, Total Protein 6.5, Albumin 2.6L, Albumin/Globulin Ratio 0.7, Procalcitonin <0.05 CBC/BMP Laboratory Tests 05/19/21 07:24 Microbiology Microbiology 05/17/21 Blood Culture - Preliminary, Resulted No growth after 24 hours . All specim... 05/17/21 Respiratory Virus Panel (PCR) ([facility]) - Final, Complete SARS-CoV-2 (COVID 19) 05/17/21 Blood Culture - Preliminary, Resulted No growth after 24 hours . All specim... Sofya Garcia MD May 19, 2021 14:03
[2021-05-19] MEDS: REMDESIVIR 100 MG in NS 250 ML IV SCH (17:02)
[2021-05-19] MEDS: SODIUM CHLORIDE 0.9% INJ 10 ML SYR IV SCH (17:02)
[2021-05-19] MEDS: ENOXAPARIN 40MG/0.4ML SYRINGE (J1650 PER 10MG) SC SCH (23:12)
[2021-05-19] MEDS ORDERED: RAMELTEON 8 MG TAB (ROZEREM) PO PRN (23:20)
[2021-05-20 06:00] VITALS: BP 115/56
[2021-05-20 06:21] LABS: BASO % 0.1 % (0.0-1.0); HEMATOCRIT 37.6 % (42.0-52.0); HEMOGLOBIN 12.6 g/dl (13.5-17.5); LYMPH # 0.6 10^3/uL (1.5-5.0); LYMPH % 7.4 % (24.0-44.0); MEAN CORPUSCULAR HEMOGLOBIN 32.1 pg (27.0-33.0); MEAN CORPUSCULAR HGB CONC 33.5 g/dl (32.0-36.5); MEAN CORPUSCULAR VOLUME 95.7 fl (80.0-96.0); MONO # 0.4 10^3/uL (0.0-0.8); MONO % 4.3 % (2.0-8.0); NEUTROPHILS # 7.5 10^3/uL (1.5-8.5); NEUTROPHILS % 86.9 % (36.0-66.0); PLATELET COUNT, AUTOMATED 255 10^3/uL (150-450); RED BLOOD COUNT 3.93 10^6/uL (4.30-6.10); WHITE BLOOD COUNT 8.6 10^3/uL (4.0-10.0)
[2021-05-20 06:47] LABS: BLOOD UREA NITROGEN 22 MG/DL (7-18); CALCIUM LEVEL 8.7 MG/DL (8.8-10.2); CARBON DIOXIDE LEVEL 27 MEQ/L (21-32); CHLORIDE LEVEL 108 MEQ/L (98-107); CREATININE FOR GFR 0.75 MG/DL (0.70-1.30); GLOMERULAR FILTRATION RATE > 60.0 (>49); GLUCOSE, FASTING 124 MG/DL (70-100); MAGNESIUM LEVEL 2.4 MG/DL (1.8-2.4); SODIUM LEVEL 141 MEQ/L (136-145)
[2021-05-20 08:00] VITALS: O2SAT 99
[2021-05-20] MEDS: dexameTHASONE 20MG/5ML VIAL (J1100 PER 1MG) IV SCH ×2 (10:23→21:27)
[2021-05-20] MEDS: levETIRAcetam **XR** 500 MG TABLET PO SCH ×2 (10:23→21:27)
[2021-05-20] MEDS: BARICITINIB 2MG TABLET (OLUMIANT) FOR EUA PO SCH (10:23)
[2021-05-20] MEDS: ESCITALOPRAM OXALATE 10 MG TAB (LEXAPRO) PO SCH (10:24)
[2021-05-20] MEDS: TOPIRAMATE (TopAMAX) 25 MG TAB PO SCH (10:24)
[2021-05-20] MEDS: PANTOPRAZOLE 40MG TAB (PROTONIX) PO SCH ×2 (10:24→21:27)
[2021-05-20] MEDS: TAMSULOSIN 0.4 MG CAP PO SCH (10:24)
[2021-05-20] MEDS: ASPIRIN 81MG ENTERIC TABLET PO SCH (10:24)
[2021-05-20] MEDS: LACOSAMIDE 50 MG TAB (VIMPAT) PO SCH ×2 (10:24→21:26)
--- NOTE | 2021-05-20 10:35 | IPNPDOC ---
Subjective Date Seen The patient was seen on 05/20/21. Subjective Chief Complaint/HPI Continues to require Vapotherm 25 L at 100% no deterioration in oxygenation overnight. No acute events overnight Objective Physical Examination General Exam: Positive: Alert, Cooperative, No Acute Distress ENT Exam: Positive: Atraumatic, Mucous membr. moist/pink, Pharynx Normal Neck Exam: Positive: Supple; Negative: JVD, thyromegaly Chest Exam: Positive: Normal air movement, Diminished, Other (Bilateral diffuse crackles) Heart Exam: Positive: Rate Normal, Regular Rhythm, Normal S1, Normal S2; Negative: Murmurs, Rubs Abdomen Exam: Positive: Normal bowel sounds, Soft, Hepatospenomegaly; Negative: Tenderness Extremity Exam: Negative: Clubbing, Cyanosis, Edema Skin Exam: Positive: Nl turgor and temperature; Negative: Breakdown, Lesion Neuro Exam: Positive: Normal Speech, Strength at 5/5 X4 ext, Normal Tone Psych Exam: Positive: Oriented x 3 Assessment /Plan Assessment 61-year-old male with a past medical history of morbid obesity BMI of 39.5, sei zure disorder a presented to the emergency room with the shortness of breath for 1 week. On presentation to the ED he was noted to be tachypneic with an oxygen saturation of 82% on room air. Patient reported that he has been feeling sick 1 week ago. He was having cough, malaise, poor appetite, nausea mild shortness of breath especially when he was walking. 2 days ago he started feeling worse and started feeling more short of breath with increased cough and phlegm. He has been coughing all night and all day long and has not been able to get any sleep. In the ED he was found to be Covid positive and hypoxic. Chest x-ray showed bilateral infiltrates and peribronchial infiltrates. Patient was admitted for Covid pneumonia with hypoxic respiratory failure. Patient's oxygenation worsened overnight and currently needing Vapotherm. Covid pneumonia with acute hypoxic respiratory failure Dexamethasone, remdesivir, aspirin start on Olumiant. Lovenox for DVT prophylaxis Albuterol as needed Hypertension Continue only amlodipine BPH Continue flomax Morbid obesity With possible underlying sleep apnea. Patient has been referred for a sleep study by his PMD. Traumatic brain injury/seizure Continue levetiracetam, topiramate, Vimpat Hyperlipidemia We will hold statin at present Anxiety/depression Lexapro GI prophylaxis PPI Plan/VTE VTE Prophylaxis Ordered?: Yes VS, I&O, 24H, Fishbone Vital Signs/I&O Vital Signs Date Time Temp Pulse Resp B/P (MAP) Pulse Ox O2 Delivery O2 Flow Rate FiO2 05/20/21 07:50 HVNI-Vapotherm 25.0 100 05/20/21 07:00 96 05/20/21 06:00 99.6 72 20 115/56 (75) I&O- Last 24 Hours up to 6 AM 05/20/21 06:00 Intake Total 1200 ml Output Total 1225 ml Balance -25 ml Laboratory Data 24H LABS Laboratory Tests 2 05/20/21 05:56: Immature Granulocyte % (Auto) 1.3, Neutrophils (%) (Auto) 86.9H, Lymphocytes (%) (Auto) 7.4L, Monocytes (%) (Auto) 4.3, Eosinophils (%) (Auto) 0.0, Basophils (%) (Auto) 0.1, Neutrophils # (Auto) 7.5, Lymphocytes # (Auto) 0.6L, Monocytes # (Auto) 0.4, Eosinophils # (Auto) 0.0, Basophils # (Auto) 0.0, Nucleated Red Blood Cells % (auto) 0.0, Anion Gap 6L, Glomerular Filtration Rate > 60.0, Calcium Level 8.7L, Magnesium Level 2.4 CBC/BMP Laboratory Tests 05/20/21 05:56 Microbiology Microbiology 05/17/21 Blood Culture - Preliminary, Resulted No Growth after 48 hours. All Specime... 05/17/21 Respiratory Virus Panel (PCR) ([facility]) - Final, Complete SARS-CoV-2 (COVID 19) 05/17/21 Blood Culture - Preliminary, Resulted No Growth after 48 hours. All Specime... Sofya Garcia MD May 20, 2021 10:35
[2021-05-20 12:00] VITALS: O2SAT 90
[2021-05-20 14:00] VITALS: BP 111/59
[2021-05-20] MEDS: ALBUTEROL SULFATE 2.5 MG/0.5 ML INH NEB SOLN NEB SCH ×2 (14:21→20:00)
[2021-05-20 16:00] VITALS: O2SAT 98
[2021-05-20] MEDS: REMDESIVIR 100 MG in NS 250 ML IV SCH (17:30)
[2021-05-20] MEDS: SODIUM CHLORIDE 0.9% INJ 10 ML SYR IV SCH (19:57)
[2021-05-20 20:00] VITALS: BP 110/57; O2SAT 97
[2021-05-20] MEDS: ENOXAPARIN 40MG/0.4ML SYRINGE (J1650 PER 10MG) SC SCH (21:27)
[2021-05-21] VITALS (9 sets, daily range): BP systolic 117–146; BP diastolic 67–76; O2SAT 94–97
[2021-05-21] MEDS: ALBUTEROL SULFATE 2.5 MG/0.5 ML INH NEB SOLN NEB SCH ×5 (01:20→20:15)
[2021-05-21 08:31] LABS: BASO % 0.2 % (0.0-1.0); EOS % 0.1 % (0.0-3.0); HEMATOCRIT 38.3 % (42.0-52.0); HEMOGLOBIN 12.8 g/dl (13.5-17.5); LYMPH # 0.8 10^3/uL (1.5-5.0); LYMPH % 7.5 % (24.0-44.0); MEAN CORPUSCULAR HEMOGLOBIN 31.7 pg (27.0-33.0); MEAN CORPUSCULAR HGB CONC 33.4 g/dl (32.0-36.5); MEAN CORPUSCULAR VOLUME 94.8 fl (80.0-96.0); MONO # 0.6 10^3/uL (0.0-0.8); MONO % 5.9 % (2.0-8.0); NEUTROPHILS # 8.4 10^3/uL (1.5-8.5); NEUTROPHILS % 84.9 % (36.0-66.0); PLATELET COUNT, AUTOMATED 252 10^3/uL (150-450); RED BLOOD COUNT 4.04 10^6/uL (4.30-6.10)
[2021-05-21 08:40] LABS: INR 1.09; PROTHROMBIN TIME 14.5 SECONDS (12.7-14.5)
[2021-05-21 09:06] LABS: CPK CREATINE PHOSPHOKINASE 39 U/L (39-308); TROPONIN I < 0.02 NG/ML (< 0.10)
[2021-05-21 09:10] LABS: ALBUMIN 2.5 GM/DL (3.2-5.2); ALT/SGPT 36 U/L (12-78); BILIRUBIN,DIRECT 0.2 MG/DL (0.0-0.2); BILIRUBIN,TOTAL 0.7 MG/DL (0.2-1.0); BLOOD UREA NITROGEN 21 MG/DL (7-18); CALCIUM LEVEL 8.8 MG/DL (8.8-10.2); CARBON DIOXIDE LEVEL 26 MEQ/L (21-32); CHLORIDE LEVEL 109 MEQ/L (98-107); CREATININE FOR GFR 0.72 MG/DL (0.70-1.30); FERRITIN 804 NG/ML (26-388); GLOMERULAR FILTRATION RATE > 60.0 (>49); GLUCOSE, FASTING 98 MG/DL (70-100); LDH LACTATE DEHYDROGENASE 319 U/L (87-241); MAGNESIUM LEVEL 2.5 MG/DL (1.8-2.4); NT-PRO BNP 465 PG/ML (<125); POTASSIUM SERUM 4.1 MEQ/L (3.5-5.1); SODIUM LEVEL 141 MEQ/L (136-145); TOTAL PROTEIN 6.4 GM/DL (6.4-8.2)
[2021-05-21] MEDS: TOPIRAMATE (TopAMAX) 25 MG TAB PO SCH (09:34)
[2021-05-21] MEDS: BARICITINIB 2MG TABLET (OLUMIANT) FOR EUA PO SCH (09:34)
[2021-05-21] MEDS: PANTOPRAZOLE 40MG TAB (PROTONIX) PO SCH ×2 (09:35→20:36)
[2021-05-21] MEDS: ASPIRIN 81MG ENTERIC TABLET PO SCH (09:35)
[2021-05-21] MEDS: LACOSAMIDE 50 MG TAB (VIMPAT) PO SCH ×2 (09:35→20:36)
[2021-05-21] MEDS: levETIRAcetam **XR** 500 MG TABLET PO SCH ×2 (09:35→20:36)
[2021-05-21] MEDS: ESCITALOPRAM OXALATE 10 MG TAB (LEXAPRO) PO SCH (09:35)
[2021-05-21] MEDS: TAMSULOSIN 0.4 MG CAP PO SCH (09:36)
[2021-05-21] MEDS: dexameTHASONE 20MG/5ML VIAL (J1100 PER 1MG) IV SCH ×2 (09:36→20:35)
--- NOTE | 2021-05-21 11:45 | IPNPDOC ---
Subjective Date Seen The patient was seen on 05/21/21. Subjective Chief Complaint/HPI No acute overnight events. Oxygenation is improving. Now on 8L of oxygen. No complaints this morning. Objective Physical Examination General Exam: Positive: Alert, Cooperative, No Acute Distress ENT Exam: Positive: Atraumatic, Mucous membr. moist/pink, Pharynx Normal Neck Exam: Positive: Supple; Negative: JVD, thyromegaly Chest Exam: Positive: Normal air movement, Diminished, Other (Bilateral diffuse crackles) Heart Exam: Positive: Rate Normal, Regular Rhythm, Normal S1, Normal S2; Negative: Murmurs, Rubs Abdomen Exam: Positive: Normal bowel sounds, Soft, Hepatospenomegaly; Negative: Tenderness Extremity Exam: Negative: Clubbing, Cyanosis, Edema Skin Exam: Positive: Nl turgor and temperature; Negative: Breakdown, Lesion Neuro Exam: Positive: Normal Speech, Strength at 5/5 X4 ext, Normal Tone Psych Exam: Positive: Oriented x 3 Assessment /Plan Assessment 61-year-old male with a past medical history of morbid obesity BMI of 39.5, seizure disorder a presented to the emergency room with the shortness of breath for 1 week. On presentation to the ED he was noted to be tachypneic with an oxygen saturation of 82% on room air. Patient reported that he has been feeling sick 1 week ago. He was having cough, malaise, poor appetite, nausea mild s hortness of breath especially when he was walking. 2 days ago he started feeling worse and started feeling more short of breath with increased cough and phlegm. He has been coughing all night and all day long and has not been able to get any sleep. In the ED he was found to be Covid positive and hypoxic. Chest x-ray showed bilateral infiltrates and peribronchial infiltrates. Patient was admitted for Covid pneumonia with hypoxic respiratory failure. Patient's oxygenation worsened overnight and currently needing Vapotherm. Covid pneumonia with acute hypoxic respiratory failure Dexamethasone, remdesivir, aspirin, Olumiant. Lovenox for DVT prophylaxis Albuterol as needed Hypertension Continue only amlodipine BPH Continue flomax Morbid obesity With possible underlying sleep apnea. Patient has been referred for a sleep study by his PMD. Traumatic brain injury/seizure Continue levetiracetam, topiramate, Vimpat Hyperlipidemia We will hold statin at present Anxiety/depression Lexapro GI prophylaxis PPI Plan/VTE VTE Prophylaxis Ordered?: Yes VS, I&O, 24H, Fishbone Vital Signs/I&O Vital Signs Date Time Temp Pulse Resp B/P (MAP) Pulse Ox O2 Delivery O2 Flow Rate FiO2 05/21/21 06:00 96.6 64 22 146/76 (99) 97 High Flow Cannula 8.0 05/20/21 20:22 100 I&O- Last 24 Hours up to 6 AM 05/21/21 06:00 Intake Total 480 ml Output Total 1150 ml Balance -670 ml Laboratory Data 24H LABS Laboratory Tests 2 05/21/21 07:50: Immature Granulocyte % (Auto) 1.4, Neutrophils (%) (Auto) 84.9H, Lymphocytes (%) (Auto) 7.5L, Monocytes (%) (Auto) 5.9, Eosinophils (%) (Auto) 0.1, Basophils (%) (Auto) 0.2, Neutrophils # (Auto) 8.4, Lymphocytes # (Auto) 0.8L, Monocytes # (Auto) 0.6, Eosinophils # (Auto) 0.0, Basophils # (Auto) 0.0, Nucleated Red Blood Cells % (auto) 0.0, Prothrombin Time 14.5H, Prothromb Time International Ratio 1.09, Activated Partial Thromboplast Time 30.0, Fibrinogen 521H, Anion Gap 6L, Glomerular Filtration Rate > 60.0, Calcium Level 8.8, Magnesium Level 2.5H, Ferritin 804H, Total Bilirubin 0.7, Direct Bilirubin 0.2, Aspartate Amino Transf (AST/SGOT) 21, Alanine Aminotransferase (ALT/SGPT) 36, Alkaline Phosphatase 34L, Lactate Dehydrogenase 319H, Total Creatine Kinase 39, Troponin I < 0.02, [id number]-[id number]-Type Natriuretic Peptide 465H, Total Protein 6.4, Albumin 2.5L, Albumin/Globulin Ratio 0.6 CBC/BMP Laboratory Tests 05/21/21 07:50 Microbiology Microbiology 05/17/21 Blood Culture - Preliminary, Resulted No Growth after 72 hours. All specime... 05/17/21 Respiratory Virus Panel (PCR) ([facility]) - Final, Complete SARS-CoV-2 (COVID 19) 05/17/21 Blood Culture - Preliminary, Resulted No Growth after 72 hours. All specime... Sofya Garcia MD May 21, 2021 11:44
[2021-05-21] MEDS: REMDESIVIR 100 MG in NS 250 ML IV SCH (18:35)
[2021-05-21] MEDS: ENOXAPARIN 40MG/0.4ML SYRINGE (J1650 PER 10MG) SC SCH (20:35)
[2021-05-21] MEDS: SODIUM CHLORIDE 0.9% INJ 10 ML SYR IV SCH (20:35)
[2021-05-22] VITALS (7 sets, daily range): BP systolic 120–156; BP diastolic 69–82; O2SAT 92–97
[2021-05-22] MEDS: ALBUTEROL SULFATE 2.5 MG/0.5 ML INH NEB SOLN NEB SCH ×3 (01:54→12:32)
[2021-05-22 07:45] LABS: BASO % 0.2 % (0.0-1.0); EOS % 0.1 % (0.0-3.0); HEMATOCRIT 37.6 % (42.0-52.0); HEMOGLOBIN 12.6 g/dl (13.5-17.5); LYMPH # 0.9 10^3/uL (1.5-5.0); LYMPH % 9.1 % (24.0-44.0); MEAN CORPUSCULAR HGB CONC 33.5 g/dl (32.0-36.5); MEAN CORPUSCULAR VOLUME 95.4 fl (80.0-96.0); MONO # 0.6 10^3/uL (0.0-0.8); MONO % 5.7 % (2.0-8.0); NEUTROPHILS # 8.5 10^3/uL (1.5-8.5); NEUTROPHILS % 81.7 % (36.0-66.0); PLATELET COUNT, AUTOMATED 294 10^3/uL (150-450); RED BLOOD COUNT 3.94 10^6/uL (4.30-6.10); WHITE BLOOD COUNT 10.4 10^3/uL (4.0-10.0)
[2021-05-22 08:14] LABS: BLOOD UREA NITROGEN 23 MG/DL (7-18); CALCIUM LEVEL 8.4 MG/DL (8.8-10.2); CARBON DIOXIDE LEVEL 26 MEQ/L (21-32); CHLORIDE LEVEL 111 MEQ/L (98-107); CREATININE FOR GFR 0.78 MG/DL (0.70-1.30); GLOMERULAR FILTRATION RATE > 60.0 (>49); GLUCOSE, FASTING 106 MG/DL (70-100); MAGNESIUM LEVEL 2.4 MG/DL (1.8-2.4); POTASSIUM SERUM 4.3 MEQ/L (3.5-5.1); SODIUM LEVEL 142 MEQ/L (136-145)
[2021-05-22] MEDS: BARICITINIB 2MG TABLET (OLUMIANT) FOR EUA PO SCH (09:05)
[2021-05-22] MEDS: ESCITALOPRAM OXALATE 10 MG TAB (LEXAPRO) PO SCH (09:05)
[2021-05-22] MEDS: LACOSAMIDE 50 MG TAB (VIMPAT) PO SCH (09:05)
[2021-05-22] MEDS: dexameTHASONE 20MG/5ML VIAL (J1100 PER 1MG) IV SCH (09:05)
[2021-05-22] MEDS: TAMSULOSIN 0.4 MG CAP PO SCH (09:06)
[2021-05-22] MEDS: PANTOPRAZOLE 40MG TAB (PROTONIX) PO SCH (09:06)
[2021-05-22] MEDS: ASPIRIN 81MG ENTERIC TABLET PO SCH (09:06)
[2021-05-22] MEDS: TOPIRAMATE (TopAMAX) 25 MG TAB PO SCH (09:06)
[2021-05-22] MEDS: levETIRAcetam **XR** 500 MG TABLET PO SCH (09:06)
[2021-05-22] MEDS ORDERED: PANT40TA29 PO (14:53)
[2021-05-22] MEDS ORDERED: PRED10TA2 PO (14:53)
[2021-05-22] MEDS ORDERED: PROAAER10 INH (14:53)
--- NOTE | 2021-05-22 16:15 | DS.PDOC ---
Discharge Summary General Date of Admission May 17, 2021 at 17:26 Date of Discharge 05/22/21 Discharge Summary PROCEDURES PERFORMED DURING STAY: [None]. DISCHARGE DIAGNOSES: Covid pneumonia Acute hypoxic respiratory failure COMPLICATIONS/CHIEF COMPLAINT: Covid-19,Hypoxia. HOSPITAL COURSE: 61-year-old male with a past medical history of morbid obesity BMI of 39.5, seizure disorder a presented to the emergency room with the shortness of breath for 1 week. On presentation to the ED he was noted to be tachypneic with an oxygen saturation of 82% on room air. Patient reported that he has been feeling sick 1 week ago. He was having cough, malaise, poor appetite, nausea mild shortness of breath especially when he was walking. 2 days ago he started feeling worse and started feeling more short of breath with increased cough and phlegm. He has been coughing all night and all day long and has not been able to get any sleep. In the ED he was found to be Covid positive and hypoxic. Chest x-ray showed bilateral infiltrates and peribronchial infiltrates. Patient was admitted for Covid pneumonia with hypoxic respiratory failure. Patient's oxygenation had a deteriorated post admission requiring Vapotherm with 25 L of oxygen now his oxygenation has again improved and he is only needing 2 L of oxygen mostly during ambulation and activity when he is desaturated down to 88%. He is able to maintain his saturation over 92 at rest. Overall patient is feeling better and will be discharged home with home oxygen at the rate of 2 L/min Covid pneumonia with acute hypoxic respiratory failure Received remdesivir and Olumiant. Continue aspirin. Continue steroid taper Albuterol as needed Hypertension Continue minoxidil Amlodipine held BPH Continue flomax Morbid obesity With possible underlying sleep apnea. Patient has been referred for a sleep study by his PMD. Traumatic brain injury/seizure Continue levetiracetam, topiramate, Vimpat Hyperlipidemia We will hold statin at present Anxiety/depression Lexapro GI prophylaxis PPI DISCHARGE MEDICATIONS: Please see below. ALLERGIES: Please see below. PHYSICAL EXAMINATION ON DISCHARGE: VITAL SIGNS: Please see below. General Exam: Positive: Alert, Cooperative, No Acute Distress ENT Exam: Positive: Atraumatic, Mucous membr. moist/pink, Pharynx Normal Neck Exam: Positive: Supple; Negative: JVD, thyromegaly Chest Exam: Positive: Normal air movement, Diminished, Other (Bilateral diffuse crackles) Heart Exam: Positive: Rate Normal, Regular Rhythm, Normal S1, Normal S2; Negative: Murmurs, Rubs Abdomen Exam: Positive: Normal bowel sounds, Soft, Hepatospenomegaly; Negative: Tenderness Extremity Exam: Negative: Clubbing, Cyanosis, Edema Skin Exam: Positive: Nl turgor and temperature; Negative: Breakdown, Lesion Neuro Exam: Positive: Normal Speech, Strength at 5/5 X4 ext, Normal Tone Psych Exam: Positive: Oriented x 3 LABORATORY DATA: Please see below. IMAGING: Chest x-ray: There is diffuse mild peribronchial consolidation consistent with viral pneumonia or bronchitis. The heart borders and mediastinum are normal. There are no pleural effusions. IMPRESSION: Bilateral peribronchial consolidation consistent with viral pneumonia or acute bronchitis. ACTIVITY: [As tolerated]. DIET: As tolerated DISCHARGE PLAN: Home with home oxygen DISCHARGE INSTRUCTIONS: Follow up with PMD in 1 week DISCHARGE CONDITION: [Stable]. TIME SPENT ON DISCHARGE: 35 minutes. Vital Signs/I&Os Vital Signs Date Time Temp Pulse Resp B/P (MAP) Pulse Ox O2 Delivery O2 Flow Rate FiO2 05/22/21 14:00 96.6 69 17 120/69 (86) 95 High Flow Cannula 2.0 05/20/21 20:22 100 I&O- Last 24 Hours up to 6 AM 05/22/21 06:00 Intake Total 1440 ml Output Total 1250 ml Balance 190 ml Laboratory Data Labs 24H Laboratory Tests 2 05/22/21 07:16: Immature Granulocyte % (Auto) 3.2H, Neutrophils (%) (Auto) 81.7H, Lymphocytes (%) (Auto) 9.1L, Monocytes (%) (Auto) 5.7, Eosinophils (%) (Auto) 0.1, Basophils (%) (Auto) 0.2, Neutrophils # (Auto) 8.5, Lymphocytes # (Auto) 0.9L, Monocytes # (Auto) 0.6, Eosinophils # (Auto) 0.0, Basophils # (Auto) 0.0, Nucleated Red Blood Cells % (auto) 0.0, Anion Gap 5L, Glomerular Filtration Rate > 60.0, Calcium Level 8.4L, Magnesium Level 2.4 CBC/BMP Laboratory Tests 05/22/21 07:16 Microbiology Microbiology 05/17/21 Blood Culture - Preliminary, Resulted No Growth after 72 hours. All specime... 11/14/21 Respiratory Virus Panel (PCR) ([facility]) - Final, Complete SARS-CoV-2 (COVID 19) 05/17/21 Blood Culture - Preliminary, Resulted No Growth after 72 hours. All specime... Discharge Medications Scheduled Aspirin (Aspirin) 81 Mg Chw, 81 MG PO DAILY, (Reported) Atorvastatin Calcium (Atorvastatin Calcium) 20 Mg Tab, 20 MG PO DAILY, (Reported) Calcium Carbonate (Calcium) 500 Mg Tab.chew, 500 MG PO DAILY, (Reported) Cholecalciferol (Vitamin D3) (Vitamin D3) 1,000 Unit Tablet, 1,000 UNITS PO DAILY, (Reported) Escitalopram Oxalate (Lexapro) 20 Mg Tablet, 20 MG PO DAILY, (Reported) Lacosamide (Vimpat) 200 Mg Tab, 200 MG PO BID, (Reported) Levetiracetam (Keppra Xr) 500 Mg Tab, 1,000 MG PO QAM, (Reported) Levetiracetam (Keppra Xr) 500 Mg Tab, 1,500 MG PO QHS, (Reported) Minoxidil (Minoxidil) 2.5 Mg Tab, 2.5 MG PO DAILY, (Reported) Multivitamins (Thera M Plus Tablet) 1 Each Tablet, 1 TAB PO DAILY, (Reported) Pantoprazole Sodium (Pantoprazole Sodium) 40 Mg Tablet.dr, 1 TAB PO DAILY Prednisone (Prednisone) 10 Mg Tablet, 10 MG PO TAPER Take 4 tabs daily x 3 days, then 3 tabs daily x 3 days, then 2 tabs daily x 3 days, then 1 tab daily x 3 days and stop Tamsulosin Hcl (Tamsulosin HCl) 0.4 Mg Capsule, 0.4 MG PO DAILY, (Reported) Topiramate (Topiramate) 50 Mg Tablet, 50 MG PO DAILY, (Reported) Scheduled PRN Albuterol Sulfate (Proair Hfa) 8.5 Gm Hfa.aer.ad, 2 PUFF INH Q4-6HP PRN for wheezing Allergies Coded Allergies: sulfamethoxazole (Verified Allergy, Mild, HIVES, 05/17/21) trimethoprim (Verified Allergy, Mild, HIVES, 05/17/21) Sofya Garcia MD May 22, 2021 14:50
== END 2021-05-22 17:50 | disposition home or self-care (01) | DRG 137 ==
LOC: M ED 14:31 → M ED INP 17:26 → ENRESERV 23:34 → M 4MAIN 05-18 00:43
PROVIDERS: ADMIT Internal Medicine Nephrology; ATTEND Internal Medicine Nephrology
PROC: XW033E5 Introduction of Remdesivir Anti-infective into Peripheral Vein, Percutaneous Approach, New Technology Group 5 (ICD-10-PCS; principal; 2021-05-17)
PROC: 3E0333Z Introduction of Anti-inflammatory into Peripheral Vein, Percutaneous Approach (ICD-10-PCS; 2021-05-17)
DX: U07.1 COVID-19 (principal); J96.01 Acute respiratory failure with hypoxia; J12.82 Pneumonia due to coronavirus disease 2019; E66.9 Obesity, unspecified; Z68.39 Body mass index [BMI] 39.0-39.9, adult; Z87.820 Personal history of traumatic brain injury; I10 Essential (primary) hypertension; G40.909 Epilepsy, unspecified, not intractable, without status epilepticus; E78.5 Hyperlipidemia, unspecified; F41.9 Anxiety disorder, unspecified; F32.A Depression, unspecified; Z79.82 Long term (current) use of aspirin; Z79.899 Other long term (current) drug therapy; Z88.2 Allergy status to sulfonamides; Z88.8 Allergy status to other drugs, medicaments and biological substances; N40.0 Benign prostatic hyperplasia without lower urinary tract symptoms; G47.30 Sleep apnea, unspecified

== ENCOUNTER → 2021-06-15 | Outpatient (REF) | payer OTHER ==
[~2021-06-15] MED LIST changes: +CALC500C16 PO; +D31000TA2 PO; +LEXA1TAB2 PO; +PANT40TA29 PO; +PRED10TA2 PO; +PROAAER10 INH; +TOPI50TA9 PO; +VITMTA PO
[2021-06-15 12:48] LABS: BASO % 0.6 % (0.0-1.0); EOS # 0.2 10^3/uL (0.0-0.5); EOS % 2.3 % (0.0-3.0); HEMATOCRIT 37.4 % (42.0-52.0); HEMOGLOBIN 12.5 g/dl (13.5-17.5); LYMPH # 1.6 10^3/uL (1.5-5.0); LYMPH % 22.9 % (24.0-44.0); MEAN CORPUSCULAR HEMOGLOBIN 32.5 pg (27.0-33.0); MEAN CORPUSCULAR HGB CONC 33.4 g/dl (32.0-36.5); MEAN CORPUSCULAR VOLUME 97.1 fl (80.0-96.0); MONO # 0.5 10^3/uL (0.0-0.8); MONO % 6.7 % (2.0-8.0); NEUTROPHILS # 4.6 10^3/uL (1.5-8.5); NEUTROPHILS % 66.5 % (36.0-66.0); PLATELET COUNT, AUTOMATED 229 10^3/uL (150-450); RED BLOOD COUNT 3.85 10^6/uL (4.30-6.10); WHITE BLOOD COUNT 6.9 10^3/uL (4.0-10.0)
[2021-06-15 13:09] LABS: HEMOGLOBIN A1c 5.6 %
[2021-06-15 13:41] LABS: ALBUMIN 3.3 GM/DL (3.2-5.2); ALT/SGPT 32 U/L (12-78); BILIRUBIN,TOTAL 0.7 MG/DL (0.2-1.0); BLOOD UREA NITROGEN 11 MG/DL (7-18); CALCIUM LEVEL 9.1 MG/DL (8.8-10.2); CARBON DIOXIDE LEVEL 23 MEQ/L (21-32); CHLORIDE LEVEL 113 MEQ/L (98-107); CHOLESTEROL LEVEL 105 MG/DL (<200); CHOLESTEROL RISK RATIO 3.281 (<5); CREATININE FOR GFR 0.88 MG/DL (0.70-1.30); GLOMERULAR FILTRATION RATE > 60.0 (>49); GLUCOSE, FASTING 116 MG/DL (70-100); HDL CHOLESTEROL 32 MG/DL (>40); LDL CHOLESTEROL 50 MG/DL (<100); NON-HDL-C 73 MG/DL; POTASSIUM SERUM 3.5 MEQ/L (3.5-5.1); SODIUM LEVEL 146 MEQ/L (136-145); TOTAL PROTEIN 6.6 GM/DL (6.4-8.2); TRIGLYCERIDES LEVEL 113 MG/DL (<150)
== END ==
LOC: M SFHCADAM 10:57
PROVIDERS: ATTEND Family Medicine
DX: I10 Essential (primary) hypertension (principal); E78.2 Mixed hyperlipidemia; N40.1 Benign prostatic hyperplasia with lower urinary tract symptoms; Z13.1 Encounter for screening for diabetes mellitus

== ENCOUNTER → 2022-01-18 | Outpatient (CLI) | payer OTHER ==
[~2022-01-18] MED LIST changes: -D31000TA2 PO; +VITA100093 PO
[2022-01-18 17:57] LABS: BLOOD UREA NITROGEN 12 MG/DL (7-18); CALCIUM LEVEL 8.8 MG/DL (8.8-10.2); CARBON DIOXIDE LEVEL 25 MEQ/L (21-32); CHLORIDE LEVEL 114 MEQ/L (98-107); CREATININE FOR GFR 0.94 MG/DL (0.70-1.30); GLOMERULAR FILTRATION RATE > 60.0 (>49); GLUCOSE, FASTING 79 MG/DL (70-100); POTASSIUM SERUM 3.9 MEQ/L (3.5-5.1); SODIUM LEVEL 145 MEQ/L (136-145)
== END ==
LOC: M PLALAB 14:09
PROVIDERS: ATTEND Student in an Organized Health Care Education/Training Program
DX: F41.8 Other specified anxiety disorders (principal)

== ENCOUNTER → 2022-03-24 | Outpatient (CLI) | payer OTHER | LOC: M SLEEP HO 09:31 | PROVIDERS: ATTEND Nurse Practitioner Family | DX: R06.83 Snoring (principal) ==

== ENCOUNTER → 2022-06-23 | Outpatient (CLI) | payer OTHER ==
[2022-06-23 13:46] LABS: BASO % 0.4 % (0.0-1.0); EOS # 0.1 10^3/uL (0.0-0.5); EOS % 1.2 % (0.0-3.0); HEMATOCRIT 42.6 % (42.0-52.0); HEMOGLOBIN 13.7 g/dl (13.5-17.5); LYMPH % 27.4 % (24.0-44.0); MEAN CORPUSCULAR HEMOGLOBIN 32.2 pg (27.0-33.0); MEAN CORPUSCULAR HGB CONC 32.2 g/dl (32.0-36.5); MEAN CORPUSCULAR VOLUME 100.2 fl (80.0-96.0); MONO # 0.6 10^3/uL (0.0-0.8); MONO % 7.7 % (2.0-8.0); NEUTROPHILS # 4.6 10^3/uL (1.5-8.5); PLATELET COUNT, AUTOMATED 192 10^3/uL (150-450); RED BLOOD COUNT 4.25 10^6/uL (4.30-6.10); WHITE BLOOD COUNT 7.3 10^3/uL (4.0-10.0)
[2022-06-23 14:14] LABS: ALBUMIN 4.1 G/DL (3.2-5.2); ALKALINE PHOSPHATASE 61 U/L (46-116); ALT/SGPT 21 U/L (7.0-40); AST/SGOT 16 U/L (<34); BILIRUBIN,TOTAL 0.5 MG/DL (0.3-1.2); BLOOD UREA NITROGEN 14 MG/DL (9-23); CALCIUM LEVEL 9.4 MG/DL (8.3-10.6); CARBON DIOXIDE LEVEL 27 MMOL/L (20-31); CHLORIDE LEVEL 110 MMOL/L (98-107); CHOLESTEROL LEVEL 96 MG/DL (<200); CHOLESTEROL RISK RATIO 3.34 (<5); CREATININE FOR GFR 0.85 MG/DL (0.70-1.30); GLOMERULAR FILTRATION RATE > 60.0 (>49); GLUCOSE, FASTING 87 MG/DL (74-106); HDL CHOLESTEROL 28.7 MG/DL (>40); LDL CHOLESTEROL 56.1 MG/DL (<100); NON-HDL-C 67 MG/DL; POTASSIUM SERUM 4.4 MMOL/L (3.5-5.1); SODIUM LEVEL 143 MMOL/L (136-145); TOTAL PROTEIN 6.8 G/DL (5.7-8.2); TRIGLYCERIDES LEVEL 56 MG/DL (<150)
[2022-06-23 14:16] LABS: THYROID STIMULATING HORMONE 2.726 uIU/ML (0.55-4.78)
[2022-06-23 14:21] LABS: HEMOGLOBIN A1c 5.2 % (4.0-6.0)
== END ==
LOC: M PLALAB 11:09
PROVIDERS: ATTEND Student in an Organized Health Care Education/Training Program
DX: Z13.29 Encounter for screening for other suspected endocrine disorder (principal); Z13.1 Encounter for screening for diabetes mellitus; I10 Essential (primary) hypertension; E78.2 Mixed hyperlipidemia; Z12.5 Encounter for screening for malignant neoplasm of prostate

== ENCOUNTER → 2022-08-18 | Outpatient (CLI) | payer OTHER ==
[2022-08-18 14:58] LABS: BASO % 0.4 % (0.0-1.0); EOS # 0.1 10^3/uL (0.0-0.5); EOS % 1.4 % (0.0-3.0); HEMATOCRIT 40.8 % (42.0-52.0); HEMOGLOBIN 13.3 g/dl (13.5-17.5); LYMPH # 2.1 10^3/uL (1.5-5.0); LYMPH % 26.4 % (24.0-44.0); MEAN CORPUSCULAR HEMOGLOBIN 32.7 pg (27.0-33.0); MEAN CORPUSCULAR HGB CONC 32.6 g/dl (32.0-36.5); MEAN CORPUSCULAR VOLUME 100.2 fl (80.0-96.0); MONO # 0.4 10^3/uL (0.0-0.8); MONO % 5.6 % (2.0-8.0); NEUTROPHILS # 5.2 10^3/uL (1.5-8.5); NEUTROPHILS % 65.8 % (36.0-66.0); PLATELET COUNT, AUTOMATED 195 10^3/uL (150-450); RED BLOOD COUNT 4.07 10^6/uL (4.30-6.10); WHITE BLOOD COUNT 7.9 10^3/uL (4.0-10.0)
[2022-08-18 15:38] LABS: ALBUMIN 3.7 G/DL (3.2-5.2); ALKALINE PHOSPHATASE 65 U/L (46-116); ALT/SGPT 22 U/L (7.0-40); AST/SGOT 16 U/L (<34); BILIRUBIN,TOTAL 0.5 MG/DL (0.3-1.2); BLOOD UREA NITROGEN 16 MG/DL (9-23); CALCIUM LEVEL 8.7 MG/DL (8.3-10.6); CARBON DIOXIDE LEVEL 25 MMOL/L (20-31); CHLORIDE LEVEL 112 MMOL/L (98-107); CREATININE FOR GFR 0.83 MG/DL (0.70-1.30); GLOMERULAR FILTRATION RATE > 60.0 (>49); GLUCOSE, FASTING 86 MG/DL (74-106); POTASSIUM SERUM 4.4 MMOL/L (3.5-5.1); SODIUM LEVEL 143 MMOL/L (136-145)
[2022-08-18 21:45] LABS: TOTAL PROTEIN 6.3 G/DL (5.7-8.2)
== END ==
LOC: M LABDRWAD 10:37
PROVIDERS: ATTEND Nurse Practitioner Family
DX: R56.1 Post traumatic seizures (principal)

== ENCOUNTER → 2022-09-03 | Outpatient (CLI) | payer OTHER ==
[~2022-09-03] MED LIST changes: +TOPI-254 PO; -TOPI50TA9 PO
== END ==
LOC: M CARPUL 08:25
PROVIDERS: ATTEND Student in an Organized Health Care Education/Training Program
DX: M79.89 Other specified soft tissue disorders (principal); R00.1 Bradycardia, unspecified; I27.20 Pulmonary hypertension, unspecified

== ENCOUNTER 2023-04-14 08:19 | Day surgery (SDC) | payer OTHER ==
[~2023-04-14] VITALS: Ht 177.8 cm; Wt 116.2 kg
[~2023-04-14 08:19] MED LIST changes: +NS 1,000 ML IV ONE
[2023-04-14] MEDS ORDERED: LIDOCAINE 2% 100MG/5ML SDV (FOR ANES.) As Ordered ONE (09:41)
[2023-04-14] MEDS ORDERED: propofoL 500 MG/50 ML VIAL As Ordered ONE (09:41)
[2023-04-14 09:44] VITALS: TEMP 97.6
[2023-04-14] MEDS ORDERED: PREPARATION H SUPP (HEMORRHOID) PR STA (09:45)
[2023-04-14 10:05] VITALS: BP 134/68; O2SAT 99
== END 2023-04-14 10:25 | disposition home or self-care (01) ==
LOC: M OPP 08:19
PROVIDERS: ATTEND Surgery
DX: Z12.11 Encounter for screening for malignant neoplasm of colon (principal); K63.5 Polyp of colon; G47.30 Sleep apnea, unspecified; Z99.89 Dependence on other enabling machines and devices; Z86.73 Personal history of transient ischemic attack (TIA), and cerebral infarction without residual deficits; Z79.02 Long term (current) use of antithrombotics/antiplatelets; Z79.82 Long term (current) use of aspirin; Z79.83 Long term (current) use of bisphosphonates; Z79.899 Other long term (current) drug therapy; Z88.1 Allergy status to other antibiotic agents; Z88.2 Allergy status to sulfonamides

== ENCOUNTER → 2023-10-26 | Outpatient (CLI) | payer OTHER ==
[~2023-10-26] MED LIST changes: -EFFE150C2 PO; +EFFE150C3 PO; -NS 1,000 ML IV ONE; +TOPI-21 PO; -TOPI-254 PO
== END ==
LOC: M SLEEP 20:00
PROVIDERS: ATTEND Nurse Practitioner Family
DX: G47.33 Obstructive sleep apnea (adult) (pediatric) (principal)

== ENCOUNTER → 2025-04-24 | Outpatient (CLI) | payer OTHER ==
[2025-04-24 11:41] LABS: PLATELET COUNT, AUTOMATED 206 10^3/uL (150-450)
[2025-04-24 12:11] LABS: ALT/SGPT 26 U/L (7.0-40); AST/SGOT 17 U/L (<34); CALCIUM LEVEL 9.3 MG/DL (8.3-10.6); CARBON DIOXIDE LEVEL 32 MMOL/L (20-31); CHLORIDE LEVEL 105 MMOL/L (98-107); CHOLESTEROL LEVEL 152 MG/DL (<200); CHOLESTEROL RISK RATIO 4.67 (<5); CREATININE FOR GFR 0.77 MG/DL (0.70-1.30); GLOMERULAR FILTRATION RATE > 90.0 (>49); LDL CHOLESTEROL 100.9 MG/DL (<100); NON-HDL-C 119.5 MG/DL; POTASSIUM SERUM 4.7 MMOL/L (3.5-5.1); SODIUM LEVEL 144 MMOL/L (136-145); TRIGLYCERIDES LEVEL 93 MG/DL (<150)
[2025-04-24 12:12] LABS: TOTAL 25(OH) VITAMIN D 24.2 NG/ML (20.0-100.0)
[2025-04-24 12:36] LABS: HIV 1&2 SCREEN NEGATIVE (NEGATIVE)
[2025-04-24 12:44] LABS: HEPATITIS C VIRUS ABY INDEX < 0.02 INDEX (<0.8)
[2025-04-24 17:23] LABS: ESTIMATED AVERAGE GLUCOSE 103.0 MG/DL (60-110)
== END ==
LOC: M PLALAB 09:24
DX: Z13.0 Encounter for screening for diseases of the blood and blood-forming organs and certain disorders involving the immune mechanism (principal); Z13.29 Encounter for screening for other suspected endocrine disorder; Z11.59 Encounter for screening for other viral diseases; Z11.4 Encounter for screening for human immunodeficiency virus [HIV]; E78.2 Mixed hyperlipidemia; E55.9 Vitamin D deficiency, unspecified

== ENCOUNTER → 2025-04-24 | Outpatient (REF) | payer OTHER | LOC: M SFHCPLAZ 09:01 | PROVIDERS: ATTEND Family Medicine | DX: Z53.9 Procedure and treatment not carried out, unspecified reason (principal) ==